=== PATIENT | male | born 1945 | race Caucasian/White ===

== ENCOUNTER 2017-10-18 10:57 | Emergency (ER) | payer MEDICARE ==
[~2017-10-18] VITALS: Ht 180.3 cm; Wt 103.0 kg
[~2017-10-18 10:57] MED LIST: ASPI81TA82 PO; CARV12.52 PO; HYDR-3533 PO; KRIL300C PO; PLAV75TA PO; REDCAP9 PO; ROSU10 PO
[2017-10-18 11:16] VITALS: BP 197/73; PULSE 46; RESP 22; TEMP 98.7; O2SAT 85
--- NOTE | 2017-10-18 11:31 | PD ---
HPI Chief Complaint: Respiratory Symptoms Time Seen by Provider: 11:17 Travel History International Travel<30 days: No Contact w/Intl Traveler<30days: No Traveled to known affect area: No History of Present Illness HPI 72-year-old male complains of shortness of breath. Patient states that the shortness of breath started last night. Patient was seen by personal physician about a week ago for productive cough. Patient was put on Levaquin for 7 days. Patient gives given patient a history of COPD. Patient was given prescription for albuterol nebulizer treatment without relief of the shortness of breath. Patient states that the shortness of his worse since last night. Patient states that he has mild productive cough. Patient denies any headache. Patient denies any chest pain. Patient denies any abdominal pain. Patient denies any nausea vomiting diarrhea. Patient has history of CHF, CAD status post CABG, hypertension, hyperlipidemia. Patient quit smoking many years ago. Patient is on Plavix. PFSH Past Medical History Hx Anticoagulant Therapy: Yes Cardiovascular Problems: Yes ([place] - STENTS, 2 VESSEL BYPASS) High Cholesterol: Yes COPD: Yes Coronary Artery Disease: Yes Diminished Hearing: No Respiratory: Yes Immunizations Current: Yes Past Surgical History Cholecystectomy: Yes Coronary Artery Bypass Graft: Yes (X2) Coronary Stent: Yes Other Surgery: Yes (STENT LT LEG) Social History Alcohol Use: Yes (OCC) Tobacco Use: No Substance Use: No Allergies-Medications (Allergen,Severity, Reaction): Coded Allergies: benazepril (Unverified Allergy, Severe, 03/17/17) captopril (Unverified Allergy, Severe, 03/17/17) enalaprilat (Unverified Allergy, Severe, 03/17/17) fire ant (Unverified Allergy, Severe, 03/17/17) fosinopril (Unverified Allergy, Severe, 03/17/17) lisinopril (Unverified Allergy, Severe, 03/17/17) quinapril (Unverified Allergy, Severe, 03/17/17) Reported Meds & Prescriptions Reported Meds & Active Scripts Active Reported Crestor (Rosuvastatin Calcium) 20 Mg Tab 20 Mg PO DAILY Proair Hfa 8.5 GM Inh (Albuterol Sulfate) 90 Mcg/Act Aer 2 Puff INH Q4-6H PRN 108 mcg/actuation Plavix (Clopidogrel Bisulfate) 75 Mg Tab 75 Mg PO DAILY Aspirin Children's (Aspirin) 81 Mg Chew 81 Mg CHEW DAILY Carvedilol 12.5 Mg Tab 12.5 Mg PO HS Carvedilol 25 Mg Tab 25 Mg PO DAILY Albuterol Neb (Albuterol Sulfate) 2.5 Mg/0.5 Ml Neb 2.5 Mg NEB Q6HR NEB Note: The Albuterol Sulfate Inhalation Solution is concentrated and must be diluted. Read complete instructions carefully before using. Keflex (Cephalexin) 500 Mg Cap 500 Mg PO Q12H Review of Systems General / Constitutional: No: Fever Eyes: No: Visual changes HENT: No: Headaches Cardiovascular: No: Chest Pain or Discomfort Respiratory: Positive: Shortness of Breath Gastrointestinal: No: Abdominal Pain Genitourinary: No: Dysuria Musculoskeletal: No: Pain Skin: No Rash Neurologic: No: Weakness Psychiatric: No: Depression Endocrine: No: Polydipsia Hematologic/Lymphatic: No: Easy Bruising Physical Exam Narrative GENERAL: Well-nourished, well-developed patient. SKIN: Focused skin assessment warm/dry. HEAD: Normocephalic. EYES: No scleral icterus. No injection or drainage. NECK: Supple, trachea midline. No JVD or lymphadenopathy. CARDIOVASCULAR: Regular rate and rhythm without murmurs, gallops, or rubs. RESPIRATORY: Breath sounds equal bilaterally. No accessory muscle use. GASTROINTESTINAL: Abdomen soft, non-tender, nondistended. MUSCULOSKELETAL: No cyanosis, or edema. BACK: Nontender without obvious deformity. No CVA tenderness. Neurologic exam normal. Data Data Last Documented VS Vital Signs Date Time Temp Pulse Resp B/P (MAP) Pulse Ox O2 Delivery O2 Flow Rate FiO2 10/18/17 11:16 85 Nasal Cannula 3.00 10/18/17 11:16 48 10/18/17 11:16 98.7 22 197/73 (114) Orders Orders Electrocardiogram (10/18/17 11:24) Complete Blood Count With Diff (10/18/17 11:24) Comprehensive Metabolic Panel (10/18/17 11:24) Creatine Kinase (Cpk) (10/18/17 11:24) Troponin I (10/18/17 11:24) B-Type Natriuretic Peptide (10/18/17 11:24) Prothrombin Time / Inr (Pt) (10/18/17 11:24) Act Partial Throm Time (Ptt) (10/18/17 11:24) Chest, Single Ap (10/18/17 11:24) Iv Access Insert/Monitor (10/18/17 11:24) Ecg Monitoring (10/18/17 11:24) Oximetry (10/18/17 11:24) Ct Pulmonary Angiogram (10/18/17 11:24) Iohexol 350 Inj (Omnipaque 350 Inj) (10/18/17 12:32) Labs Laboratory Tests Test 10/18/17 11:31 White Blood Count 4.3 TH/MM3 Red Blood Count 4.72 MIL/MM3 Hemoglobin 14.6 GM/DL Hematocrit 44.5 % Mean Corpuscular Volume 94.3 FL Mean Corpuscular Hemoglobin 31.0 PG Mean Corpuscular Hemoglobin Concent 33.0 % Red Cell Distribution Width 14.1 % Platelet Count 207 TH/MM3 Mean Platelet Volume 6.6 FL Neutrophils (%) (Auto) 67.8 % Lymphocytes (%) (Auto) 21.5 % Monocytes (%) (Auto) 7.7 % Eosinophils (%) (Auto) 2.5 % Basophils (%) (Auto) 0.5 % Neutrophils # (Auto) 3.0 TH/MM3 Lymphocytes # (Auto) 0.9 TH/MM3 Monocytes # (Auto) 0.3 TH/MM3 Eosinophils # (Auto) 0.1 TH/MM3 Basophils # (Auto) 0.0 TH/MM3 CBC Comment DIFF FINAL Differential Comment Prothrombin Time 11.1 SEC Prothromb Time International Ratio 1.1 RATIO Activated Partial Thromboplast Time 28.5 SEC Blood Urea Nitrogen 20 MG/DL Creatinine 0.82 MG/DL Random Glucose 150 MG/DL Total Protein 7.7 GM/DL Albumin 3.4 GM/DL Calcium Level 8.1 MG/DL Alkaline Phosphatase 107 U/L Aspartate Amino Transf (AST/SGOT) 20 U/L Alanine Aminotransferase (ALT/SGPT) 20 U/L Total Bilirubin 0.6 MG/DL Sodium Level 139 MEQ/L Potassium Level 4.1 MEQ/L Chloride Level 108 MEQ/L Carbon Dioxide Level 26.0 MEQ/L Anion Gap 5 MEQ/L Estimat Glomerular Filtration Rate 92 ML/MIN Total Creatine Kinase 68 U/L Troponin I LESS THAN 0.02 NG/ML B-Type Natriuretic Peptide 101 PG/ML MDM Medical Decision Making Medical Screen Exam Complete: Yes Emergency Medical Condition: Yes Interpretation(s) 12:[address] pulmonary angiogram shows CHF. CBC within normal limits. BUN 20. Cardiac enzymes are normal. BNP 101. Differential Diagnosis Differential diagnosis including acute exacerbation COPD, CHF, bronchitis, pneumonia, PE, pneumothorax. Narrative Course 72-year-old male with shortness of breath and mild productive cough. History of COPD and CHF. Lasix 40 mg IV given. Diagnosis Primary Impression: Acute exacerbation of CHF (congestive heart failure) Qualified Codes: I50.9 - Heart failure, unspecified Patient Instructions: General Instructions Additional Instructions: Take Lasix as directed. Potassium as directed. Follow-up with personal physician. Return if worse. Med/Other Pt SpecificInfo: Prescription(s) given Scripts Potassium Chloride ER (Potassium Chloride ER) 10 Meq Cap 10 MEQ PO DAILY for Electrolyte Replacement, #30 CAP 0 Refills Prov: Mikal Kaba MD 10/18/17 Furosemide (Lasix) 20 Mg Tab 20 MG PO DAILY, #30 TAB 0 Refills Prov: Mikal Kaba MD 10/18/17 Disposition: 01 DISCHARGE HOME Condition: Stable Mikal Kaba MD Oct 18, 2017 11:31
[2017-10-18 11:39] LABS: BASOPHIL % 0.5 % (0.0-2.0); EOSINOPHIL # 0.1 TH/MM3 (0-0.4); EOSINOPHIL % 2.5 % (0.0-4.0); HEMATOCRIT 44.5 % (39.0-51.0); HEMOGLOBIN 14.6 GM/DL (13.0-17.0); LYMPH % 21.5 % (9.0-44.0); LYMPHOCYTE # 0.9 TH/MM3 (1.0-4.8); MEAN CELL VOLUME 94.3 FL (80.0-100.0); MEAN PLATELET VOLUME 6.6 FL (7.0-11.0); MONO % 7.7 % (0.0-8.0); MONOCYTE # 0.3 TH/MM3 (0-0.9); NEUT % 67.8 % (16.0-70.0); PLATELET COUNT 207 TH/MM3 (150-450); RED BLOOD COUNT 4.72 MIL/MM3 (4.50-5.90); RED CELL DISTRIBUTION WIDTH 14.1 % (11.6-17.2); WHITE BLOOD COUNT 4.3 TH/MM3 (4.0-11.0)
[2017-10-18 11:48] LABS: CHLORIDE 108 MEQ/L (98-107); SODIUM (NA) 139 MEQ/L (136-145)
[2017-10-18 11:52] LABS: ALBUMIN 3.4 GM/DL (3.4-5.0); BLOOD UREA NITROGEN 20 MG/DL (7-18); CALCIUM 8.1 MG/DL (8.5-10.1); GLUCOSE,RANDOM 150 MG/DL (74-106)
[2017-10-18 11:54] LABS: INTERNATIONAL NORMALIZED RATIO 1.1 RATIO; PROTHROMBIN TIME - PATIENT 11.1 SEC (9.8-11.6)
[2017-10-18] MEDS ORDERED: ROSU20 PO (11:54)
[2017-10-18] MEDS ORDERED: ASPI81CH7 CHEW (11:54)
[2017-10-18] MEDS ORDERED: CARV25TA PO (11:54)
[2017-10-18] MEDS ORDERED: CEPH-460 PO (11:54)
[2017-10-18] MEDS ORDERED: ALBUAER3 INH (11:54)
[2017-10-18] MEDS ORDERED: CARV12.52 PO (11:54)
[2017-10-18] MEDS ORDERED: PLAV75TA29 PO (11:54)
[2017-10-18] MEDS ORDERED: ALBU.5I NEB (11:54)
[2017-10-18 11:55] LABS: ALT (GPT) 20 U/L (12-78); AST (GOT) 20 U/L (15-37); CREATININE 0.82 MG/DL (0.60-1.30); GLOMERULAR FILTRATION RATE 92 ML/MIN (>89)
[2017-10-18 11:57] LABS: TOTAL BILIRUBIN ADULT 0.6 MG/DL (0.2-1.0); TOTAL PROTEIN 7.7 GM/DL (6.4-8.2)
[2017-10-18 11:58] LABS: ALKALINE PHOSPHATASE 107 U/L (45-117)
--- NOTE | 2017-10-18 11:58 | RADRPT ---
EXAM DATE/TIME: 10/18/2017 11:30 [facility] COMPARISON: No previous studies available for comparison. INDICATIONS : Short of breath, cough, fever MEDICAL HISTORY : Myocardial infarction. Chronic obstructive pulmonary disease. SURGICAL HISTORY : CABG. ENCOUNTER: Initial ACUITY: 1 day PAIN SCORE: 0/10 LOCATION: Bilateral chest FINDINGS: Single view of the chest demonstrates mild cardiomegaly, post surgical changes related to prior CABG surgery. Diffuse cephalization of vasculature and bilateral patchy basilar air space opacities. Blunt ing of the left costophrenic angle concerning for pleural effusion. CONCLUSION: Differential diagnosis includes congestive heart failure with pulmonary edema versus diffuse multifocal pneumonia. Ivania Durant MD on October 18, 2017 at 11:55 Board Certified Radiologist. This report was verified electronically.
[2017-10-18 12:00] LABS: TROPONIN I LESS THAN 0.02 NG/ML (0.02-0.05)
[2017-10-18] MEDS ORDERED: IOHEXOL 350 MG/ML 10 ML VIAL (for RAD DIAG) IVCONTRAST ONE (12:32)
--- NOTE | 2017-10-18 12:38 | RADRPT ---
EXAM DATE/TIME: 10/18/2017 12:23 [facility] COMPARISON: CT LUMBAR SPINE W/O CONTRAST, July 13, 2015, 18:34. INDICATIONS : Short of breath last night. IV CONTRAST: 50 cc Omnipaque 350 (iohexol) IV RADIATION DOSE: 21.18 CTDIvol (mGy) MEDICAL HISTORY : Cardiovascular disease. Chronic obstructive pulmonary disease. SURGICAL HISTORY : CABG Coronary artery stent. ENCOUNTER: Initial ACUITY: 2 days PAIN SCALE: 0/10 LOCATION: chest TECHNIQUE: Volumetric scanning of the chest was performed using a pulmonary embolism protocol MIP images were re constructed. Using automated exposure control and adjustment of the mA and/or kV according to patien t size, radiation dose was kept as low as reasonably achievable to obtain optimal diagnostic quality images. DICOM format image data is available electronically for review and comparison. Follow-up recommendations for detected pulmonary nodules are based at a minimum on nodule size and pa tient risk factors according to Fleischner Society Guidelines. FINDINGS: The examination is of moderate diagnostic quality. There is no large or central pulmonary embolus rafiq ntified. The third order branches are not well-visualized. The heart is enlarged. There is advanced atherosclerotic plaquing of the algaaciq coronary arteries. Th e patient is post coronary bypass. There is no pericardial effusion. No significant hilar or mediasti nal adenopathy is present. Imaging through the pulmonary parenchyma demonstrates COPD. There is fairly diffuse interstitial prom inence. Differential considerations would include early congestive failure versus pulmonary fibrosis. The visualized bony structures are grossly intact. CONCLUSION: 1. Cardiomegaly. 2. No pulmonary embolus identified. 3. Diffuse interstitial prominence suggesting congestive failure versus chronic interstitial changes. There are COPD changes within the pulmonary parenchyma. Can Sanders MD on October 18, 2017 at 12:33 Board Certified Radiologist. This report was verified electronically.
[2017-10-18] MEDS ORDERED: FURO1TAB62 PO (12:57)
[2017-10-18] MEDS ORDERED: POTA10CA PO (12:57)
[2017-10-18] MEDS ORDERED: FUROSEMIDE 40 MG/4 ML VIAL IV PUSH ONE (13:30)
[2017-10-18 13:33] VITALS: BP 186/86
--- NOTE | 2017-10-19 11:28 | EKG ---
Date Performed: 10/18/2017 Time Performed: 11:52:52 PTAGE: 72 years EKG: SINUS BRADYCARDIA MODERATE INTRAVENTRICULAR CONDUCTION DELAY NONSPECIFIC T-WAVE ABNORMALITY BORDERLINE ECG NO PREVIOUS TRACING DOCTOR: Sofy Lepe Interpretating Date/Time 10/19/2017 11:25:22
== END 2017-10-18 13:42 | disposition home or self-care (01) ==
LOC: PHED 10:57
DX: I50.9 Heart failure, unspecified (principal); R00.1 Bradycardia, unspecified; J44.9 Chronic obstructive pulmonary disease, unspecified; E78.00 Pure hypercholesterolemia, unspecified; I25.10 Atherosclerotic heart disease of native coronary artery without angina pectoris; Z95.1 Presence of aortocoronary bypass graft; Z95.5 Presence of coronary angioplasty implant and graft; Z79.02 Long term (current) use of antithrombotics/antiplatelets; Z88.8 Allergy status to other drugs, medicaments and biological substances
CPT/HCPCS: 71045; 71275; 80053; 82550; 83880; 84484; 85025; 85610; 85730; 93005; 96374; 99285; J1940; Q9967

== ENCOUNTER 2018-07-10 02:53 | Inpatient (IN) ==
[2018-07-10 03:32] LABS: Baso % (Auto) 0.2 % (0.0-2.0); Chloride 103 meq/L (98-107); Eos # (Auto) 0.3 th/mm3 (0.0-0.4); Eos % (Auto) 2.8 % (0.0-4.0); Hematocrit 45.4 % (39.0-51.0); Hemoglobin 15.2 gm/dL (13.0-17.0); Lymph # (Auto) 1.1 th/mm3 (1.0-4.8); Mean Corpuscular HGB Conc 33.5 % (32.0-36.0); Mean Corpuscular Hemoglobin 32.8 pg (27.0-34.0); Mean Corpuscular Volume 97.9 fL (80.0-100.0); Mean Platelet Volume 7.8 fL (7.0-11.0); Mono # (Auto) 0.8 th/mm3 (0.0-0.9); Mono % (Auto) 8.1 % (0.0-8.0); Neut # (Auto) 8.2 th/mm3 (1.8-7.7); Neut % (Auto) 77.9 % (16.0-70.0); Platelet Count 179 th/mm3 (150-450); Potassium 4.6 meq/L (3.5-5.1); Red Blood Count 4.64 mil/mm3 (4.50-5.90); Red Cell Distribution Width 16.4 % (11.6-17.2); Sodium 137 meq/L (136-145); White Blood Count 10.4 th/mm3 (4.0-11.0)
[2018-07-10 03:35] LABS: Calcium 8.6 mg/dL (8.5-10.1)
[2018-07-10 03:36] LABS: Albumin 3.4 g/dL (3.4-5.0); Anion Gap 6 meq/L (5-15); Blood Urea Nitrogen 21 mg/dL (7-18); Carbon Dioxide 28.4 meq/L (21.0-32.0); Glucose,Random 181 mg/dL (74-106)
[2018-07-10 03:39] LABS: Alanine Aminotransferase 29 U/L (12-78); Aspartate Aminotransferase 24 U/L (15-37); Glomerular Filtration Rate 89 mL/min (>89)
[2018-07-10 03:40] LABS: Total Protein 7.4 g/dL (6.4-8.2)
[2018-07-10 03:42] LABS: Alkaline Phosphatase 133 U/L (45-117)
[2018-07-10 03:44] LABS: Troponin I 0.03 ng/mL (0.02-0.05)
[2018-07-10 03:50] LABS: Creatine Kinase 52 U/L (39-308)
[2018-07-10 04:01] LABS: Activated Partial Thrombo Time 26.9 sec (23.4-31.7); Prothrombin Time 10.4 sec (9.8-11.6)
--- NOTE | 2018-07-10 04:15 | ED ---
HPI General Chief complaint: Respiratory Symptoms Stated complaint: SOB Time Seen by Provider: 07/10/18 03:02 Source: patient and family Mode of arrival: ambulatory Limitations: no limitations History of Present Illness HPI narrative: Patient presents with history of frequent urination. For that reason patient stopped taking his Lasix for the last 3 days. Patient was fine when he went to bed and had no significant symptoms. However patient woke up in the middle of the night with significant shortness of breath and pain with deep inspiration. Rescue responded and treated him with #3 duo nebs and Solu- Medrol. Patient initially had a pulse ox of 80. However on arrival the patient was improving and after being here approximately 5 minutes his pulse ox is 90. Patient still had significant respiratory distress on presentation. And complained of pain with deep inspiration. However as his respiratory distress resolved over a period of 10-15 minutes the chest pain that he had with deep inspiration resolved. Patient had some diaphoresis prior to arrival. The chest pain was substernal and associated only with deep inspiration. Related Data Home Medications Medication Instructions Recorded Confirmed albuterol sulfate [ProAir HFA] 2 puff INHALATION Q4-6H PRN 07/10/18 07/10/18 aspirin 81 mg PO DAILY 07/10/18 07/10/18 bumetanide 1 mg PO DAILY 07/10/18 07/10/18 carvedilol [Coreg] 25 mg PO BID 07/10/18 07/10/18 clopidogrel [Plavix] 75 mg PO DAILY 07/10/18 07/10/18 rosuvastatin [Crestor] 10 mg PO DAILY 07/10/18 07/10/18 Allergies Allergy/AdvReac Type Severity Reaction Status Date / Time CATALINO Inhibitors Allergy Anaphylaxis Verified 07/10/18 02:58 Review of Systems ROS: all other systems reviewed are negative [facility] Medical History Medical History History of chronic obstructive pulmonary disease (Acute) History of hypercholesterolemia (Acute) History of myocardial infarction (Acute) Surgical History Surgical History History of coronary artery bypass graft (Acute) Social History Social History Substance History: No History of Abuse Smoking Status: Former smoker Tobacco Type: Cigarettes How Often Do You Have a Drink Containing Alcohol: Never Recent Travel in [facility] within the Last 8 Weeks: No Recent Out of Country Travel within the Last 8 Weeks: No Immunization History Tetanus Immunization: >5 Years Exam Narrative Exam Narrative: GENERAL: Acute respiratory distress with respiratory rate of 30/ min with a pulse ox of 85 on presentation SKIN: Focused skin assessment warm/dry. Diaphoretic HEAD: Atraumatic. Normocephalic. EYES: Pupils equal and round. No scleral icterus. No injection or drainage. ENT: No nasal bleeding or discharge. Mucous membranes pink and moist. NECK: Trachea midline. +JVD distention. CARDIOVASCULAR: Tachycardia with a normal rhythm. No murmur appreciated. RESPIRATORY: Patient had diffuse polyphonic wheezing with decreased breath sounds bilaterally. GASTROINTESTINAL: Abdomen soft, non-tender, nondistended. Hepatic and splenic margins not palpable. MUSCULOSKELETAL: No obvious deformities. No clubbing. No cyanosis. No edema. No calf tenderness or popliteal tenderness. No pretibial edema NEUROLOGICAL: Awake and alert. No obvious cranial nerve deficits. Motor grossly within normal limits. Normal speech. PSYCHIATRIC: Appropriate mood and affect; insight and judgment normal. Course Reevaluation(s) Reevaluation #1: Additionally prostate enlarged and bladder scan shows 274 mL of fluid. Capps catheter with leg bag placed. Time: 04:12 Initial Documented Vital Signs Temperature 97.8 F 07/10/18 03:00 Pulse Rate 87 07/10/18 03:00 Respiratory Rate 35 H 07/10/18 03:00 Blood Pressure 180/87 H 07/10/18 03:00 Pulse Oximetry 88 L 07/10/18 03:00 Last Documented Vital Signs Temperature 98.2 F 07/10/18 06:12 Pulse Rate 78 07/10/18 06:12 Respiratory Rate 22 07/10/18 06:12 Blood Pressure 142/75 H 07/10/18 06:12 Pulse Oximetry 93 L 07/10/18 06:12 Critical Care Time Total Critical Care Time: 80 Medical Decision Making MDM Narrative Medical Screen Exam Complete: Yes Emergency Medical Condition: Yes Lab Data Result diagrams: 07/10/18 03:11 07/10/18 03:11 Lab Results 07/10/18 07/10/18 07/10/18 Range/Units 03:11 03:11 03:11 CBC w Diff Auto diff final WBC 10.4 (4.0-11.0) th/mm3 RBC 4.64 (4.50-5.90) mil/mm3 Hgb 15.2 (13.0-17.0) gm/dL Hct 45.4 (39.0-51.0) % MCV 97.9 (80.0-100.0) fL MCH 32.8 (27.0-34.0) pg MCHC 33.5 (32.0-36.0) % RDW 16.4 (11.6-17.2) % Plt Count 179 (150-450) th/mm3 MPV 7.8 (7.0-11.0) fL Neut % (Auto) 77.9 H (16.0-70.0) % Lymph % (Auto) 11.0 (9.0-44.0) % [place] % (Auto) 8.1 H (0.0-8.0) % Eos % (Auto) 2.8 (0.0-4.0) % Baso % (Auto) 0.2 (0.0-2.0) % Neut # (Auto) 8.2 H (1.8-7.7) th/mm3 Lymph # (Auto) 1.1 (1.0-4.8) th/mm3 [place] # (Auto) 0.8 (0.0-0.9) th/mm3 Eos # (Auto) 0.3 (0.0-0.4) th/mm3 Baso # (Auto) 0.0 (0.0-0.2) th/mm3 WBC Differential . Differential Comment . PT 10.4 (9.8-11.6) sec INR 1.0 Ratio APTT 26.9 (23.4-31.7) sec Sodium (136-145) meq/L Potassium (3.5-5.1) meq/L Chloride (98-107) meq/L Carbon Dioxide (21.0-32.0) meq/L Anion Gap (5-15) meq/L BUN (7-18) mg/dL Creatinine (0.60-1.30) mg/dL Estimated GFR (>89) mL/min Random Glucose (74-106) mg/dL Calcium (8.5-10.1) mg/dL Magnesium (1.5-2.5) mg/dL Total Bilirubin (0.2-1.0) mg/dL AST (15-37) U/L ALT (12-78) U/L Alkaline Phosphatase (45-117) U/L Total Creatine Kinase (39-308) U/L Troponin I (0.02-0.05) ng/mL B-Natriuretic Peptide 108 H (0-100) pg/mL Total Protein (6.4-8.2) g/dL Albumin (3.4-5.0) g/dL 07/10/18 07/10/18 Range/Units 03:11 03:11 CBC w Diff WBC (4.0-11.0) th/mm3 RBC (4.50-5.90) mil/mm3 Hgb (13.0-17.0) gm/dL Hct (39.0-51.0) % MCV (80.0-100.0) fL MCH (27.0-34.0) pg MCHC (32.0-36.0) % RDW (11.6-17.2) % Plt Count (150-450) th/mm3 MPV (7.0-11.0) fL Neut % (Auto) (16.0-70.0) % Lymph % (Auto) (9.0-44.0) % [place] % (Auto) (0.0-8.0) % Eos % (Auto) (0.0-4.0) % Baso % (Auto) (0.0-2.0) % Neut # (Auto) (1.8-7.7) th/mm3 Lymph # (Auto) (1.0-4.8) th/mm3 [place] # (Auto) (0.0-0.9) th/mm3 Eos # (Auto) (0.0-0.4) th/mm3 Baso # (Auto) (0.0-0.2) th/mm3 WBC Differential Differential Comment PT (9.8-11.6) sec INR Ratio APTT (23.4-31.7) sec Sodium 137 (136-145) meq/L Potassium 4.6 (3.5-5.1) meq/L Chloride 103 (98-107) meq/L Carbon Dioxide 28.4 (21.0-32.0) meq/L Anion Gap 6 (5-15) meq/L BUN 21 H (7-18) mg/dL Creatinine 0.84 (0.60-1.30) mg/dL Estimated GFR 89 (>89) mL/min Random Glucose 181 H (74-106) mg/dL Calcium 8.6 (8.5-10.1) mg/dL Magnesium 1.8 (1.5-2.5) mg/dL Total Bilirubin 0.8 (0.2-1.0) mg/dL AST 24 (15-37) U/L ALT 29 (12-78) U/L Alkaline Phosphatase 133 H (45-117) U/L Total Creatine Kinase 52 (39-308) U/L Troponin I 0.03 (0.02-0.05) ng/mL B-Natriuretic Peptide (0-100) pg/mL Total Protein 7.4 (6.4-8.2) g/dL Albumin 3.4 (3.4-5.0) g/dL Imaging Data Radiologist's impression: Chest X-Ray 07/10/18 03:04 CONCLUSION: Left lower lobe airspace disease. Diffuse interstitial prominence. Chest CTA 07/10/18 04:15 CONCLUSION: 1. Severe emphysema. 2. Left lower lobe and lingular pneumonia. 3. 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 4.2 cm ECG Data EKG Prior to Arrival: Yes Interpretation: Regular rhythm with no ectopy. Left axis shift with no ischemic changes. RI QRS and QT are within normal limits Discharge Plan Discharge Disposition Patient Disposition: ED Admit(ED Internal Use Only) Discharge Details Discharge Comment: Acute respiratory distress; COPD; outlet obstruction of bladder with retention and boggy enlarged prostate. Physicians Team ED Provider: Lorenzo Reeves Primary Care Provider: UNKNOWN, Rxs /Orders / Referrals /Forms Prescriptions: No Action carvedilol [Coreg] 25 mg Tablet 25 mg PO BID RF: 0 rosuvastatin [Crestor] 10 mg Tablet 10 mg PO DAILY RF: 0 clopidogrel [Plavix] 75 mg Tablet 75 mg PO DAILY RF: 0 aspirin 81 mg Tablet,Chewable 81 mg PO DAILY RF: 0 albuterol sulfate [ProAir HFA] 90 mcg/actuation Hfa Aerosol Inhaler 2 puff INHALATION Q4-6H PRN (Reason: Shortness Of Breath) RF: 0 bumetanide 1 mg Tablet 1 mg PO DAILY RF: 0 Discharge Interventions Interventions: Vital Signs Last Done: 07/10/18 03:03 Status ED Status: With Doctor
--- NOTE | 2018-07-10 04:29 | XR ---
EXAM DATE: 07/10/2018 4:13 AM EST AGE/SEX: 72 years / Male INDICATIONS: . Shortness of breath. CLINICAL DATA: This is the patient's initial encounter. Patient reports that signs and symptoms have been present for 1 day and indicates a pain score of 0/10. MEDICAL/SURGICAL HISTORY: Hypertension. Chronic obstructive pulmonary disease. Myocardial inf arction. Congestive heart failure. Coronary artery disease. CABG. Coronary artery stent. Cholecys tectomy. COMPARISON: [facility], XR CHEST PA AND LAT, 04/29/2018. . FINDINGS: There is mild interstitial prominence and patchy left lower lobe airspace disease. Mild degenerative changes of the spine. CONCLUSION: Left lower lobe airspace disease. Diffuse interstitial prominence. Electronically signed by: Tomy Umanzor MD 07/10/2018 4:28 AM EST
--- NOTE | 2018-07-10 05:19 | CT ---
EXAM DATE: 07/10/2018 4:58 AM EST AGE/SEX: 72 years / Male INDICATIONS: Shortness of breath. CLINICAL DATA: This is the patient's initial encounter. Patient reports that signs and symptoms have been present for 1 day and indicates a pain score of 5/10. MEDICAL/SURGICAL HISTORY: Chronic obstructive pulmonary disease. Hypercholesterolemia. Myocardial i nfarction. . Coronary artery bypass graft. RADIATION DOSE: 21.85 CTDI (mGy) COMPARISON: [facility], CHEST 2V PA&LAT, 07/10/2018. . TECHNIQUE: Volumetric scanning was performed using a multi-row detector CT scanner during bolus infu shaheen of 70 ml Omnipaque 350 (iohexol) nonionic water-soluble contrast as a single exam dose. The selma a was post processed with a variety of visualization algorithms including full volume maximum intensi ty projection and sliding thin slab reformation. Using automated exposure control and adjustment of the mA and/or kV according to patient size, radiation dose was kept as low as reasonably achievable t o obtain optimal diagnostic quality images. DICOM format image data is available electronically for review and comparison. FINDINGS: There are severe emphysematous changes identified. There is interstitial prominence with consolidatio n in the left lower lobe corresponding to findings on recent chest x-ray. There are no pleural effusi ons. There is patchy airspace disease in the lingula. Sternotomy wires and mediastinal clips from CAB G are noted. Atherosclerotic calcifications of the aorta are present. Ascending aorta is prominent in caliber up to 4.2 cm. There is no evidence for pulmonary embolism. There are degenerative changes of the spine seen. Bilateral gynecomastia. CONCLUSION: 1. Severe emphysema. 2. Left lower lobe and lingular pneumonia. 3. 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 4.2 cm Electronically signed by: Tomy Umanzor MD 07/10/2018 5:18 AM EST
[2018-07-10] MEDS ORDERED: Azithromycin Inj 500 MG in Sodium Chlor 0.9% Inj 250 ML IV.SIG ONE (08:04)
[2018-07-10] MEDS ORDERED: Bisacodyl 10 MG Supp RECTAL PRN ×2 (09:02→15:13)
[2018-07-10] MEDS ORDERED: Acetaminophen 325 MG Tablet PO PRN (09:02)
[2018-07-10] MEDS: predniSONE 10 MG Tablet PO SCH ×2 (09:41→20:26)
[2018-07-10] MEDS: Carvedilol 12.5 MG Tablet PO SCH ×2 (09:42→20:26)
[2018-07-10] MEDS ORDERED: Enoxaparin Inj 40 MG/0.4 ML Syringe SQ SCH (10:00)
[2018-07-10] MEDS ORDERED: Heparin 10,000 UNITS/10 ML Vial (for IV use) IV.PUSH STA (10:23)
[2018-07-10 10:55] LABS: Activated Partial Thrombo Time 28.7 sec (23.4-31.7); Prothrombin Time 10.6 sec (9.8-11.6)
[2018-07-10] MEDS: Heparin Drip 25,000 UNIT/250 ML BAG IV.CONT PRN (11:05)
--- NOTE | 2018-07-10 11:47 | P.HPIM ---
History of Present Illness Primary Care Physician: UNKNOWN Chief Complaint: Shortness of breath History of Present Illness: Denies premature cardiac disease stroke or cancer 72-year-old gentleman with CAD and severe COPD states he awoke after being asleep for a couple hours with sudden acute shortness of breath and hypoxia. Patient states he did not have chest pain palpitations but severe shortness of breath and he could not get his oxygen levels up to normal. He noted his oxygen saturations in the 60s. He could not catch a deep breath, and he called 911. He was treated with IV Solu-Medrol and pulmonary treatments and brought to the emergency room where he was tachypneic and hypoxic. Chest x-ray revealed left lower lobe infiltrate while CT angiogram of chest was negative for PE and consistent with left lower lobe and lingular pneumonia. Patient denies any recent illness or signs of pneumonia, he had recently seen his cyber operator Dr. Webb, and has been feeling well. Patient was noted to have difficulty voiding in the emergency room and bladder scan revealed greater than 270 cc Capps catheter was placed, patient denies history of bladder outlet obstruction but was told has an enlarged prostate. PMhx: Coronary artery disease, GA, oxygen dependent COPD, hypertension, dyslipidemia, (coat repair inspector Dr. Anguiano), BPH PSXhx: Cardiac stents, 2V CABG, cholecystectomy, 3 knee surgeries SOChx: Denies tobacco quit 2008, denies alcohol, ambulates independently, 2.5 L nasal cannula chronic at home FAMhx: Coronary artery disease Inpatient Certification Inpatient Certification: I certify that the inpatient services were ordered in accordance with Medicare regulations governing the order. This includes certification that hospital inpatient services are reasonable and necessary and in the case of services not specified as inpatient-only under 42 CFR 419.22(n), that they are appropriately provided as inpatient services in accordance to with the 2-midnight benchmark under 43 CFR 412.3(e) Estimated Total Length of Stay (Days): 3 Plans for Post Hospital Care: Other acute care hospital Review of Systems Review of Systems: all other systems reviewed are negative [facility] Medical History Medical History History of chronic obstructive pulmonary disease (Acute) History of hypercholesterolemia (Acute) History of myocardial infarction (Acute) Surgical History Surgical History History of coronary artery bypass graft (Acute) Social History Social History Substance History: No History of Abuse Second Hand Smoke Exposure: No Smoking Status: Former smoker Tobacco Type: Cigarettes How Often Do You Have a Drink Containing Alcohol: Monthly or less Recent Travel in [place] within the Last 8 Weeks: No Recent Out of Country Travel within the Last 8 Weeks: No Immunization History Tetanus Immunization: >5 Years Hx Influenza Vaccine This Season: Yes Medications and Allergies Allergies Allergy/AdvReac Type Severity Reaction Status Date / Time CATALINO Inhibitors Allergy Anaphylaxis Verified 07/10/18 02:58 Home Medications Medication Instructions Recorded Confirmed Type albuterol sulfate [ProAir HFA] 2 puff INHALATION Q4-6H PRN 07/10/18 07/10/18 History aspirin 81 mg PO DAILY 07/10/18 07/10/18 History bumetanide 1 mg PO DAILY 07/10/18 07/10/18 History carvedilol [Coreg] 25 mg PO BID 07/10/18 07/10/18 History clopidogrel [Plavix] 75 mg PO DAILY 07/10/18 07/10/18 History rosuvastatin [Crestor] 10 mg PO DAILY 07/10/18 07/10/18 History Active Medications: Active Medications Acetaminophen (Tylenol) 650 mg PO Q4H PRN PRN Reason: Temp > 100.4 Al Hydroxide/Mg Hydroxide (Milk Of Navya Liperla) 30 ml PO Q12H PRN PRN Reason: Mild Constipation Albuterol (Ventolin Hfa Inh) 2 puff INH Q4H PRN PRN Reason: Shortness Of Breath Albuterol (Duoneb Neb (Ayesha)) 1 ampul NEB Q4HR NEB AYESHA Aspirin (Aspirin Chew) 81 mg PO DAILY [facility] Last Admin: 07/10/18 09:43 Dose: 81 mg Atorvastatin Calcium (Lipitor) 20 mg PO DAILY [facility] Last Admin: 07/10/18 09:42 Dose: 20 mg Bisacodyl (Dulcolax Supp) 10 mg RECTAL DAILY PRN PRN Reason: SEVERE CONSITIPATION Carvedilol (Coreg) 25 mg PO BID [facility] Last Admin: 07/10/18 09:42 Dose: 25 mg Clopidogrel Bisulfate (Plavix) 75 mg PO DAILY [facility] Last Admin: 07/10/18 09:43 Dose: 75 mg Famotidine (Pepcid) 20 mg PO HS [facility] Ceftriaxone Sodium 1,000 mg/ (Sodium Chloride) 100 mls @ 200 mls/hr IV.SIG Q24H [facility] Last Infusion: 07/10/18 10:21 Dose: Infused Azithromycin 500 mg/ Sodium (Chloride) 250 mls @ 250 mls/hr IV.SIG Q24H [facility] Heparin Sodium/Dextrose (Heparin/D5w 25,000 U/250 Ml) 25,000 unit in 250 mls @ 0 mls/hr IV.CONT TITRATE PRN; Protocol PRN Reason: Per Protocol Last Admin: 07/10/18 11:05 Dose: 1,200 units/hr, 12 mls/hr Lactobacillus Acidophilus (Lactinex Pkt) 1 gm PO TID [facility] Lactulose (Lactulose Liq) 30 ml PO DAILY PRN PRN Reason: SEVERE CONSITIPATION Ondansetron HCl (Zofran Inj) 4 mg IV.PUSH Q6H PRN PRN Reason: NAUSEA OR VOMITING Prednisone (Deltasone) 30 mg PO BID [facility] Last Admin: 07/10/18 09:41 Dose: 30 mg Senna/Docusate Sodium (Lupe-Colace) 1 tab PO BID [facility] Sennosides (Senokot) 17.2 mg PO Q12H PRN PRN Reason: Moderate Constipation Sodium Chloride (Ns Flush) 2 ml IV.FLUSH UNSCH PRN PRN Reason: FLUSH AFTER USING IV ACCESS Sodium Chloride (Ns Flush) 2 ml IV.FLUSH PRN PRN PRN Reason: FLUSH AFTER USING IV ACCESS Sodium Chloride (Ns Flush) 2 ml IV.FLUSH BID [facility] Physical Exam Vital signs: Last Vital Signs Temp 98.4 F 07/10/18 08:30 Pulse 68 07/10/18 09:02 Resp 23 07/10/18 09:02 BP 149/75 H 07/10/18 09:02 Pulse Ox 93 L 07/10/18 08:30 Intake & Output 07/08/18 07/09/18 07/10/18 07/11/18 06:59 06:59 06:59 06:59 Intake Total 350 / 350 Output Total 1850 / 1850 Balance -1850 / -1850 350 / 350 Weight 102.058 kg Narrative: GEN well-developed well-nourished pleasant 72-year-old white gentleman awake alert oriented to person time and place, pleasant in no acute distress, on Ventimask but speaking in full sentences HEENT normocephalic atraumatic, Pupils equal reactive, sclerae anicteric, extraocular motion intact, mucosa is moist. posterior pharynx clear without exudate no gum lip dental lesions noted NECK supple no JVD trachea midline thyroid smooth not enlarged ANT CHEST WALL without mass or tenderness to palpation HEART S1-S2 regular without murmur gallops or clicks LUNGS clear to auscultation without wheeze, no rales or rhonchi , Diminished symmetric expansion, no dullness to percussion, BACK exam is no CVA tenderness or mass, increased kyphosis ABDOMEN soft nondistended positive bowel sounds no guarding rebound rigidity, no mass LYMPH NODES no cervical, axillary or inguinal adenopathy noted EXTREMITIES no clubbing cyanosis or significant edema, peripheral pulses palpable +2 NEUROLOGIC cranial nerves II through XII appear grossly intact, strength is 5 out of 5 symmetrical no clonus or rigidity SKIN warm and dry with good turgor, no other rash or sores noted hyperemic discoloration lower extremity Results Labs CBC & Chem 7: 07/10/18 03:11 07/10/18 03:11 Imaging Impressions Chest X-Ray 07/10/18 03:04 CONCLUSION: Left lower lobe airspace disease. Diffuse interstitial prominence. Chest CTA 07/10/18 04:15 CONCLUSION: 1. Severe emphysema. 2. Left lower lobe and lingular pneumonia. 3. 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 4.2 cm Caprini VTE Risk Assessment Caprini VTE Risk Assessment: Moderate/High Risk (score >= 2) Caprini Risk Assessment Model: Point Value = 1 Point Value = 2 Point Value = 3 Point Value = 5 Age 41-60 Minor surgery BMI > 25 kg/m2 Swollen legs Varicose veins or History of unexplained or recurrent spontaneous Oral contraceptives or hormone replacement Sepsis (< 1 month) Serious lung disease, including pneumonia (< 1 month) Abnormal pulmonary function Acute myocardial infarction Congestive heart failure (< 1 month) History of inflammatory bowel disease Medical patient at bed rest Age 61-74 Arthroscopic surgery Major open surgery (> 45 min) Laparoscopic surgery (> 45 min) Malignancy Confined to bed (> 72 hours) Immobilizing plaster cast Central venous access Age >= 75 History of VTE Family history of VTE Factor V Leiden Prothrombin 03120G Lupus anticoagulant Anticardiolipin antibodies Elevated serum homocysteine Heparin-induced thrombocytopenia Other congenital or acquired thrombophilia Stroke (< 1 month) Elective arthroplasty Hip, pelvis, or leg fracture Acute spinal cord injury (< 1 month) Prophylaxis Regimen: Total Risk Factor Score Risk Level Prophylaxis Regimen 0-1 Low Early ambulation 2 Moderate Order ONE of the following: *Sequential Compression Device (SCD) *Heparin 5000 units SQ BID 3-4 Higher Order ONE of the following medications: *Heparin 5000 units SQ TID *Enoxaparin/Lovenox 40 mg SQ daily (WT < 150 kg, CrCl > 30 mL/min) *Enoxaparin/Lovenox 30 mg SQ daily (WT < 150 kg, CrCl > 10-29 mL/min) *Enoxaparin/Lovenox 30 mg SQ BID (WT < 150 kg, CrCl > 30 mL/min) AND/OR *Sequential Compression Device (SCD) 5 or more Highest Order ONE of the following medications: *Heparin 5000 units SQ TID (Preferred with Epidurals) *Enoxaparin/Lovenox 40 mg SQ daily (WT < 150 kg, CrCl > 30 mL/min) *Enoxaparin/Lovenox 30 mg SQ daily (WT < 150 kg, CrCl > 10-29 mL/min) *Enoxaparin/Lovenox 30 mg SQ BID (WT < 150 kg, CrCl > 30 mL/min) AND *Sequential Compression Device (SCD) Assessment and Plan Plan ACUTE ON CHRONIC HYPOXIC RESPIRATORY FAILURE -due to exacerbation of COPD/non- STEMI, patient is admitted, continue telemetry, pulmonary treatments, oxygen NSTEMI-currently no chest pain, serial troponins, aspirin beta-federica and nitrates, cardiology consult, heparin drip per protocol EXACERBATION COPDcontinue steroids, pulmonary treatments as tolerated HTNaccelerated in presentation improved, continue to monitor and home Coreg CADwith history of CABG and stents on Plavix aspirin, continue, get echocardiogram and follow-up with cardiology regarding non-STEMI DYSLIPIDEMIAcontinue statin as tolerated PNEUMONIA /CAP LINGULAR/LLLsputum cultures, blood cultures, empiric Rocephin azithromycin, HYPERGLYCEMIA -no history of diabetes, likely stress-induced and secondary to steroids, will monitor fasting glucose H&P: Quality VTE Deep Vein Thrombosis/Pulmonary Embolism Present on Admission: No
[2018-07-10] MEDS ORDERED: Dextrose 50% in Water 50 ML Vial IV.PUSH PRN (15:13)
[2018-07-10] MEDS ORDERED: Sod Phosphate/Sod Biphosphate (Adult) Enema 133 ML Bottle RECTAL PRN (15:13)
[2018-07-10] MEDS: Famotidine 20 MG Tablet PO SCH (20:26)
[2018-07-10] MEDS: Docusate Sodium 100 MG Capsule PO SCH (20:27)
[2018-07-10] MEDS: Senna/Docusate Sodium 8.6/50 MG Tablet PO SCH (20:28)
--- NOTE | 2018-07-10 20:52 | ECG ---
Date Performed: 07/10/2018 Time Performed: 02:53:32 PTAGE: 72 years EKG: Sinus rhythm ABNORMAL R WAVE PROGRESSION, LIKELY DUE TO LEAD PLACEMENT, BUT CANNOT EXCLUDE INTERVAL INFARCT Bishop red to previous tracing, LATERAL T WAVE ABNORMALITY IS NEW Clinical correlation is recommended NORMAL ECG PREVIOUS TRACING : 10/18/2017 11.52 DOCTOR: Jevon Ortiz Interpretating Date/Time 07/10/2018 20:50:43
--- NOTE | 2018-07-10 20:52 | ECG ---
Date Performed: 07/10/2018 Time Performed: 11:05:06 PTAGE: 72 years EKG: Sinus rhythm NONSPECIFIC T-WAVE ABNORMALITY Since the previous tracing, no significant change noted ABNORMAL ECG PREVIOUS TRACING : 07/10/2018 02.53 DOCTOR: Jevon Ortiz Interpretating Date/Time 07/10/2018 20:51:24
[2018-07-10] MEDS ORDERED: Metoprolol Tartrate 25 MG Tablet PO SCH (21:00)
[2018-07-11 06:12] LABS: Baso % (Auto) 0.1 % (0.0-2.0); Hematocrit 40.5 % (39.0-51.0); Lymph # (Auto) 0.6 th/mm3 (1.0-4.8); Lymph % (Auto) 4.1 % (9.0-44.0); Mean Corpuscular HGB Conc 34.6 % (32.0-36.0); Mean Corpuscular Hemoglobin 33.5 pg (27.0-34.0); Mean Corpuscular Volume 96.8 fL (80.0-100.0); Mean Platelet Volume 8.3 fL (7.0-11.0); Mono # (Auto) 0.9 th/mm3 (0.0-0.9); Mono % (Auto) 6.5 % (0.0-8.0); Neut # (Auto) 12.1 th/mm3 (1.8-7.7); Neut % (Auto) 89.3 % (16.0-70.0); Platelet Count 162 th/mm3 (150-450); Red Blood Count 4.19 mil/mm3 (4.50-5.90); Red Cell Distribution Width 16.8 % (11.6-17.2); White Blood Count 13.5 th/mm3 (4.0-11.0)
[2018-07-11 06:28] LABS: Anion Gap 10 meq/L (5-15); Blood Urea Nitrogen 26 mg/dL (7-18); Calcium 8.4 mg/dL (8.5-10.1); Carbon Dioxide 26.1 meq/L (21.0-32.0); Chloride 102 meq/L (98-107); Cholesterol 112 mg/dL (120-200); Glomerular Filtration Rate Greater Than 89 mL/min (>89); Glucose,Random 264 mg/dL (74-106); Potassium 4.3 meq/L (3.5-5.1); Sodium 138 meq/L (136-145); Triglycerides 59 mg/dL (42-150)
[2018-07-11 06:31] LABS: Chol/HDL Ratio 1.94 Ratio; HDL Cholesterol 57.6 mg/dL (40.0-60.0); LDL Cholesterol,Calculated 43 mg/dL (0-99)
[2018-07-11] MEDS: predniSONE 10 MG Tablet PO SCH ×2 (08:49→22:29)
[2018-07-11] MEDS: Multivitamin/Minerals Therapeutic Tablet PO SCH (08:49)
[2018-07-11] MEDS: Carvedilol 12.5 MG Tablet PO SCH ×2 (08:51→22:29)
[2018-07-11] MEDS: Docusate Sodium 100 MG Capsule PO SCH ×2 (08:58→22:36)
[2018-07-11] MEDS: Senna/Docusate Sodium 8.6/50 MG Tablet PO SCH (08:58)
[2018-07-11] MEDS: Azithromycin Inj 500 MG in Sodium Chlor 0.9% Inj 250 ML IV.SIG SCH (08:59)
[2018-07-11] MEDS ORDERED: Polyethylene Glycol 3350 17 GM Packet PO SCH (09:00)
[2018-07-11] MEDS: Heparin Drip 25,000 UNIT/250 ML BAG IV.CONT PRN (09:43)
--- NOTE | 2018-07-11 15:27 | P.PNIM ---
Subjective Interval history: Plan for heart cath tomorrow. Respiratory status is improved. No new complaints from the patient today. Physical Exam Vital signs: Last Vital Signs Temp 97.8 F 07/11/18 12:00 Pulse 66 07/11/18 14:22 Resp 18 07/11/18 14:22 BP 145/62 H 07/11/18 12:00 Pulse Ox 92 L 07/11/18 12:00 Intake & Output 07/09/18 07/10/18 07/11/18 07/12/18 06:59 06:59 06:59 06:59 Intake Total 1070 / 1070 600 / 600 Output Total 1850 / 1850 2600 / 2600 Balance -1850 / -1850 -1530 / -1530 600 / 600 Weight 102.058 kg 102.1 kg Narrative: GENERAL: NAD, A&Ox3 HEAD: Normocephalic. NECK: Supple, trachea midline. No lymphadenopathy. EYES: No scleral icterus. No injection or drainage. CARDIOVASCULAR: Regular rate and rhythm without murmurs, gallops, or rubs. RESPIRATORY: Breath sounds equal bilaterally. No accessory muscle use. GASTROINTESTINAL: Abdomen soft, non-tender, nondistended. MUSCULOSKELETAL: No cyanosis, or edema. SKIN: Warm and dry. NEURO: No focal neurological deficits. Urinary Catheter Management Indwelling Urethral Catheter: Cath placed during this visit: yes Urethral indwelling: No Insertion date: 07/10/18 Insertion time: 04:19 Results Labs CBC & Chem 7: 07/11/18 05:53 07/11/18 05:53 Labs: Microbiology 07/10/18 08:10 Blood - Peripheral Aerobic Blood Culture - Preliminary No growth in 1 day 07/10/18 08:10 Blood - Peripheral Anaerobic Blood Culture - Preliminary No growth in 1 day 07/10/18 08:15 Blood - Peripheral Aerobic Blood Culture - Preliminary No growth in 1 day 07/10/18 08:15 Blood - Peripheral Anaerobic Blood Culture - Preliminary No growth in 1 day Assessment and Plan Plan 72-year-old male admitted secondary to respiratory distress with NSTEMI NSTEMI Coronary artery disease Chest pain is resolved Cardiology following Continue aspirin Continue beta-blockers Continue nitrites Heparin drip Follow on telemetry Heart cath planned for tomorrow Previously on Plavix at baseline COPD exacerbation Acute on chronic respiratory failure Community-acquired pneumonia Left lower lobe pneumonia Improved, no persistence of COPD exacerbation Continue oxygen supplementation as needed Discontinue steroids Pulmonary treatments as needed Continue Rocephin Continue azithromycin Hypertension Continue baseline treatment Follow blood pressures Adjust treatments as needed Continue Coreg Hyperlipidemia Continue present treatment Follow as an outpatient Hyperlipidemia May be related to steroids Follow blood sugars Insulin sliding scale Diabetic diet DVT prophylaxis Heparin drip Progress Note: Quality VTE Deep Vein Thrombosis/Pulmonary Embolism Present on Admission: No
--- NOTE | 2018-07-11 18:03 | MB ---
cc: Wong Boyle MD DATE: 07/11/2018 FORESTRY FIRE AIDE: John Anguiano MD REASON FOR CONSULTATION: I am asked to evaluate patient with abnormal troponin levels. HISTORY OF PRESENT ILLNESS: Venu Willson is a pleasant 72-year-old gentleman with past medical history as noted and listed below. His past cardiac history is significant for coronary artery disease, status post CABG x 2. He also has severe COPD. The patient presented to [facility] with complaints of sudden onset shortness of breath associated with chills and shaking. In the emergency room, he was noted to have decreased O2 saturations. Troponins returned positive for acute coronary syndrome. He was subsequently transferred to [facility] for further evaluation and treatment. PERTINENT LABORATORY DATA: Troponins positive for acute coronary syndrome 5.68, 2.92. BNP 108. ECG shows sinus rhythm with a heart rate 83 BPM, normal axis and intervals, diffuse nonspecific ST-T abnormalities. Chest CTA shows severe emphysema, mild ascending aortic dilatation, 4.2 cm, interstitial prominence with consolidation left lower lobe. No evidence of pulmonary embolism. MEDICATIONS PRIOR TO ADMISSION: 1. Albuterol. 2. Aspirin. 3. Bumex. 4. Carvedilol. 5. Plavix. 6. Crestor. ALLERGIES: CATALINO INHIBITORS. PAST MEDICAL HISTORY: As above. 1. Severe COPD. 2. Hypercholesterolemia. 3. Coronary artery disease, status post infarction, PAST SURGICAL HISTORY: 1. Status post CABG x 2. 2. Cholecystectomy. 3. Knee surgery x 3. SOCIAL HISTORY: No illicit drug use. He is a former smoker. He lives with his . He drinks alcohol socially. REVIEW OF SYSTEMS: As above, 12-point review of systems reviewed and noted. No recent fevers, gastrointestinal, genitourinary or neurologic symptoms. PHYSICAL EXAMINATION: VITAL SIGNS: Pulse 52, afebrile. Vital signs are stable. HEENT: Anicteric. PERRLA. No xanthelasmas. Flat JVD. LUNGS: Decreased breath sounds at the bases, otherwise clear. HEART: Regular rate and rhythm, 2/6 systolic murmur at left lower sternal border. ABDOMEN: Soft and nontender. EXTREMITIES: Show no peripheral edema. LABORATORY DATA: As above. WBC 10.4, hemoglobin 15.2, hematocrit 45.4, platelet count 179,000. INR 1.0. IMPRESSION: 1. Troponins positive for acute coronary syndrome. 2. History of coronary artery disease, status post CABG x 2. 3. Severe chronic obstructive pulmonary disease with exacerbation. 4. Probable left lower lobe pneumonia. 5. Hypercholesterolemia. PLAN: 1. Continue IV heparin. 2. Further therapy per Dr. Anguiano, possible cath versus stress SPECT. 3. Nitroglycerin paste 1 inch every 6 hours. 4. Outpatient cardiovascular medications have been continued. 7. Dr. Anguiano will return in a.m. MD JOSUE Abdullahi/terry , 03:33 PM , 03:45 PM
--- NOTE | 2018-07-11 18:37 | MB ---
cc: Jozef Webb MD DATE: 07/11/2018 REQUESTING PHYSICIAN: Dr. Dia REASON FOR CONSULTATION: COPD and lung infiltrate. HISTORY OF PRESENT ILLNESS: Mr. Willson is a pleasant 72-year-old male with history of COPD, oxygen dependent, uses oxygen 4 liters nasal cannula. The patient was seen in this office about 4 days ago when he was doing well. Next day, he went to sleep. He woke up to go to the bathroom, but when he came from the bathroom, he started having significant shortness of breath and he was having chills. Did not have any chest pain. Did not have any fever. No cough or sputum production. He noticed that his oxygen saturation went down to 60%. He called 911 and was brought to the [facility]. He had workup done over there. He had a CT scan of the chest done that does not show any pulmonary embolism. It shows he has left lower lobe and lingular infiltrate. CBC shows WBC count 13.5, hemoglobin 14.0, hematocrit 40.5, MCV 96, platelet count 162. INR 1.0. Sodium 138, potassium 4.3, chloride 102, CO2 26, BUN 26, creatinine 0.83. He denies any fever or chills. His shortness of breath has improved. The patient is now transferred to [facility]. PAST MEDICAL HISTORY: Significant for: 1. History of COPD, oxygen dependent. 2. Coronary artery disease. 3. Hypertension. 4. Dyslipidemia. 5. BPH. PAST SURGICAL HISTORY: Status post: 1. CABG. 2 . Cholecystectomy. 3. Knee surgery. MEDICATIONS: He is currently takin. Ventolin inhaler. 2. Albuterol and Atrovent nebulizer treatment. 3. Aspirin 81 mg daily. 4. Lipitor 40 mg a day. 5. Zithromax 500 mg a day. 6. Bumex 1 mg a day. 7. Coreg 25 mg twice a day. 8. Rocephin 1 g a day. 9. Plavix 75 mg a day. 10. Famotidine 20 mg at nighttime. 11. He is on heparin drip. 12. Reglan 10 mg every 6 hours. 13. Prednisone 30 mg twice a day ALLERGIES: CATALINO INHIBITORS. FAMILY HISTORY: Noncontributory. SOCIAL HISTORY: He has a history of smoking in the past. No alcohol abuse. REVIEW OF SYSTEMS: He walks only short distances and requires oxygen 4 liters nasal cannula, still desaturates. No seizure. No DVT, pulmonary embolus. PHYSICAL EXAMINATION: GENERAL: Elderly male, mildly short of breath, not in any acute distress. VITAL SIGNS: Blood pressure 145/62, heart rate 60, respirations 20, temperature 97.8. HEENT: Pupils are equal, round and reactive to light. Oral mucosa and nasal mucosa normal. NECK: Supple. CHEST: He has few rhonchi. HEART: S1, S2 normal. ABDOMEN: Benign. EXTREMITIES: No edema. IMPRESSION: 1. Chronic obstructive pulmonary disease exacerbation. 2. Hypoxia. No pulmonary embolism. 3. A lingular/left lower lobe infiltrate. 4. Increased troponin, possible non-ST myocardial infarction. 5. History of coronary artery disease, status post coronary artery bypass grafting. 6. Hypertension. PLAN: I discussed with the patient. Will give him prednisone 20 mg aerosol treatment and continue antibiotic. Cardiology is consulted and cardiac workup is underway. Supplement his oxygen. Further treatment will depend on the course in the hospital. Thank you, Dr. Dia, for this consult. MD SUSI Montenegro/terry/bhupendra , 03:18 PM , 03:28 PM BARB
[2018-07-11] MEDS: Famotidine 20 MG Tablet PO SCH (22:30)
[2018-07-12 06:40] LABS: Baso % (Auto) 0.2 % (0.0-2.0); Hematocrit 40.4 % (39.0-51.0); Hemoglobin 13.6 gm/dL (13.0-17.0); Lymph # (Auto) 0.5 th/mm3 (1.0-4.8); Lymph % (Auto) 4.3 % (9.0-44.0); Mean Corpuscular HGB Conc 33.6 % (32.0-36.0); Mean Corpuscular Hemoglobin 33.3 pg (27.0-34.0); Mean Corpuscular Volume 99.1 fL (80.0-100.0); Mean Platelet Volume 8.6 fL (7.0-11.0); Mono # (Auto) 0.6 th/mm3 (0.0-0.9); Mono % (Auto) 5.1 % (0.0-8.0); Neut # (Auto) 10.3 th/mm3 (1.8-7.7); Neut % (Auto) 90.4 % (16.0-70.0); Platelet Count 154 th/mm3 (150-450); Red Blood Count 4.07 mil/mm3 (4.50-5.90); Red Cell Distribution Width 17.2 % (11.6-17.2); White Blood Count 11.4 th/mm3 (4.0-11.0)
[2018-07-12 07:12] LABS: Alanine Aminotransferase 29 U/L (12-78); Albumin 2.9 g/dL (3.4-5.0); Alkaline Phosphatase 129 U/L (45-117); Anion Gap 8 meq/L (5-15); Aspartate Aminotransferase 15 U/L (15-37); Blood Urea Nitrogen 27 mg/dL (7-18); Calcium 8.1 mg/dL (8.5-10.1); Carbon Dioxide 27.6 meq/L (21.0-32.0); Chloride 104 meq/L (98-107); Glomerular Filtration Rate 89 mL/min (>89); Glucose,Random 375 mg/dL (74-106); Potassium 4.4 meq/L (3.5-5.1); Sodium 140 meq/L (136-145); Total Protein 6.9 g/dL (6.4-8.2)
[2018-07-12] MEDS: predniSONE 10 MG Tablet PO SCH ×2 (08:54→21:38)
[2018-07-12] MEDS: Multivitamin/Minerals Therapeutic Tablet PO SCH (08:55)
[2018-07-12] MEDS: Carvedilol 12.5 MG Tablet PO SCH ×2 (08:55→21:38)
[2018-07-12] MEDS: Azithromycin Inj 500 MG in Sodium Chlor 0.9% Inj 250 ML IV.SIG SCH (08:56)
[2018-07-12] MEDS: Docusate Sodium 100 MG Capsule PO SCH ×2 (08:56→21:37)
[2018-07-12] MEDS: Heparin Drip 25,000 UNIT/250 ML BAG IV.CONT PRN (09:05)
--- NOTE | 2018-07-12 10:44 | P.PNIM ---
Subjective Interval history: Patient reports no acute distress overnight. No chest pain reported. Plan for heart catheterization today. Physical Exam Vital signs: Last Vital Signs Temp 97.8 F 07/12/18 08:00 Pulse 71 07/12/18 10:00 Resp 20 07/12/18 08:00 BP 169/80 H 07/12/18 08:00 Pulse Ox 92 L 07/12/18 08:00 Intake & Output 07/10/18 07/11/18 07/12/18 07/13/18 06:59 06:59 06:59 06:59 Intake Total 1070 / 1070 2230 / 2230 350 / 350 Output Total 1850 / 1850 2600 / 2600 2080 / 2080 Balance -1850 / -1850 -1530 / -1530 150 / 150 350 / 350 Weight 102.058 kg 102.1 kg 102.6 kg Narrative: GENERAL: NAD, A&Ox3 HEAD: Normocephalic. NECK: Supple, trachea midline. No lymphadenopathy. EYES: No scleral icterus. No injection or drainage. CARDIOVASCULAR: Regular rate and rhythm without murmurs, gallops, or rubs. RESPIRATORY: Breath sounds equal bilaterally. No accessory muscle use. GASTROINTESTINAL: Abdomen soft, non-tender, nondistended. MUSCULOSKELETAL: No cyanosis, or edema. SKIN: Warm and dry. NEURO: No focal neurological deficits. Urinary Catheter Management Indwelling Urethral Catheter: Cath placed during this visit: yes Urethral indwelling: No Insertion date: 07/10/18 Insertion time: 04:19 Results Labs CBC & Chem 7: 07/12/18 05:04 07/12/18 05:04 Labs: Microbiology 07/11/18 18:07 Stool Stool Occult Blood (DERECK) - Final Hemoccult negative 07/10/18 08:10 Blood - Peripheral Aerobic Blood Culture - Preliminary No growth in 1 day 07/10/18 08:10 Blood - Peripheral Anaerobic Blood Culture - Preliminary No growth in 1 day 07/10/18 08:15 Blood - Peripheral Aerobic Blood Culture - Preliminary No growth in 1 day 07/10/18 08:15 Blood - Peripheral Anaerobic Blood Culture - Preliminary No growth in 1 day Assessment and Plan Plan 72-year-old male admitted secondary to respiratory distress with NSTEMI Heart catheterization planned for today. Patient n.p.o. Resume diet after procedure. NSTEMI Coronary artery disease Chest pain is resolved Cardiology following Continue aspirin Continue beta-blockers Continue nitrites Heparin drip Follow on telemetry Heart cath planned for tomorrow Previously on Plavix at baseline COPD exacerbation Acute on chronic respiratory failure Community-acquired pneumonia Left lower lobe pneumonia Improved, no persistence of COPD exacerbation Continue oxygen supplementation as needed Discontinue steroids Pulmonary treatments as needed Continue Rocephin Continue azithromycin Hypertension Continue baseline treatment Follow blood pressures Adjust treatments as needed Continue Coreg Hyperlipidemia Continue present treatment Follow as an outpatient Hyperlipidemia May be related to steroids Follow blood sugars Insulin sliding scale Diabetic diet DVT prophylaxis Heparin drip Progress Note: Quality VTE Deep Vein Thrombosis/Pulmonary Embolism Present on Admission: No
[2018-07-12] MEDS ORDERED: Artificial Tears Opth Drops 15 ML Bottle EACH EYE PRN (12:53)
--- NOTE | 2018-07-12 13:21 | P.PNCA ---
Subjective Interval history: Patient denies any CP, pressure, palpitations, dizziness, edema or SOB. Medications and Allergies Allergies Allergy/AdvReac Type Severity Reaction Status Date / Time CATALINO Inhibitors Allergy Anaphylaxis Verified 07/10/18 02:58 Home Medications Medication Instructions Recorded Confirmed Type albuterol sulfate [ProAir HFA] 2 puff INHALATION Q4-6H PRN 07/10/18 07/10/18 History aspirin 81 mg PO DAILY 07/10/18 07/10/18 History bumetanide 1 mg PO DAILY 07/10/18 07/10/18 History carvedilol [Coreg] 25 mg PO BID 07/10/18 07/10/18 History clopidogrel [Plavix] 75 mg PO DAILY 07/10/18 07/10/18 History rosuvastatin [Crestor] 10 mg PO DAILY 07/10/18 07/10/18 History Active Medications: Active Medications Acetaminophen (Tylenol) 650 mg PO Q4H PRN PRN Reason: Temp > 100.4 Albuterol (Ventolin Hfa Inh) 2 puff INH Q4H PRN PRN Reason: Shortness Of Breath Albuterol (Duoneb Neb ([facility])) 1 ampul NEB Q6HR WHILE AWAKE NEB FOR[facility], 1928–1983 Stop: 07/12/18 19:59 Last Admin: 07/12/18 07:39 Dose: 1 ampul Artificial Tears (Tears Naturale Opth Drops) 1 drop EACH EYE Q4H PRN PRN Reason: Dry Eyes Aspirin (Aspirin Chew) 81 mg PO DAILY [facility], [facility]–1983 Last Admin: 07/12/18 08:54 Dose: 81 mg Atorvastatin Calcium (Lipitor) 40 mg PO DAILY [facility], [facility]–1983 Last Admin: 07/12/18 08:55 Dose: 40 mg Bumetanide (Bumex) 1 mg PO DAILY [facility], [facility]–1983 Last Admin: 07/12/18 08:54 Dose: 1 mg Carvedilol (Coreg) 25 mg PO BID [facility], [facility]1983 Last Admin: 07/12/18 08:55 Dose: 25 mg Clopidogrel Bisulfate (Plavix) 75 mg PO DAILY [facility], [facility]–1983 Last Admin: 07/12/18 08:55 Dose: 75 mg Dextrose (D50w Vial) 50 ml IV.PUSH UNSCH PRN PRN Reason: PER HYPOGLYCEMIA PROTOCOL Diphenhydramine HCl (Benadryl) 50 mg PO HS PRN PRN Reason: SEE LABEL COMMENTS Docusate Sodium (Colace) 100 mg PO BID [facility], [facility]1983 Last Admin: 07/12/18 08:56 Dose: Not Given Famotidine (Pepcid) 20 mg PO HS [facility], [facility]1983 Last Admin: 07/11/18 22:30 Dose: 20 mg Glucagon (Glucagon Inj) 1 mg OTHER PRN PRN PRN Reason: For hypoglycemia Ceftriaxone Sodium 1,000 mg/ (Sodium Chloride) 100 mls @ 200 mls/hr IV.SIG Q24H [facility], [facility] Last Infusion: 07/12/18 10:08 Dose: Infused Azithromycin 500 mg/ Sodium (Chloride) 250 mls @ 250 mls/hr IV.SIG Q24H [facility], [facility]1983 Last Infusion: 07/12/18 10:07 Dose: Infused Heparin Sodium/Dextrose (Heparin/D5w 25,000 U/250 Ml) 25,000 unit in 250 mls @ 0 mls/hr IV.CONT TITRATE PRN; Protocol PRN Reason: Per Protocol Last Admin: 07/12/18 09:05 Dose: 1,200 units/hr, 12 mls/hr Lactobacillus Acidophilus (Lactinex Pkt) 1 gm PO TID [facility], [facility]1983 Last Admin: 07/12/18 08:56 Dose: 1 gm Metoclopramide HCl (Reglan Inj) 10 mg IV.PUSH Q6HR [facility], [facility]1983; Protocol Last Admin: 07/12/18 06:47 Dose: 10 mg Multivitamins/Minerals (Theragran-M) 1 tab PO DAILY [facility], [facility]1983 Last Admin: 07/12/18 08:55 Dose: 1 tab Ondansetron HCl (Zofran Inj) 4 mg IV.PUSH Q6H PRN PRN Reason: NAUSEA OR VOMITING Prednisone (Deltasone) 30 mg PO BID [facility], [facility]1983 Last Admin: 07/12/18 08:54 Dose: 30 mg Sodium Chloride (Ns Flush) 2 ml IV.FLUSH PRN PRN PRN Reason: FLUSH AFTER USING IV ACCESS Sodium Chloride (Ns Flush) 2 ml IV.FLUSH BID [facility], [facility]1983 Last Admin: 07/12/18 08:57 Dose: 2 ml Tamsulosin HCl (Flomax) 0.4 mg PO DAILY [facility]1983 Last Admin: 07/12/18 08:55 Dose: 0.4 mg Physical Exam Vital signs: Vital Signs 07/11/18 14:00 07/11/18 14:22 07/11/18 15:00 Temperature Pulse Rate 64 66 65 Respiratory Rate 18 Blood Pressure Pulse Oximetry 07/11/18 16:00 07/11/18 17:00 07/11/18 18:00 Temperature 98.1 F Pulse Rate 65 77 85 Respiratory Rate 18 Blood Pressure 152/67 H Pulse Oximetry 91 L 07/11/18 19:00 07/11/18 19:01 07/11/18 20:00 Temperature 97.4 F L Pulse Rate 64 63 62 Respiratory Rate 18 18 Blood Pressure 164/74 H Pulse Oximetry 91 L 92 L 07/11/18 21:00 07/11/18 22:00 07/11/18 23:00 Temperature Pulse Rate 60 62 68 Respiratory Rate Blood Pressure Pulse Oximetry 07/11/18 23:56 07/12/18 00:00 07/12/18 01:00 Temperature Pulse Rate 62 50 L Respiratory Rate 16 Blood Pressure 176/80 H Pulse Oximetry 94 L 92 L 07/12/18 02:00 07/12/18 03:00 07/12/18 04:00 Temperature Pulse Rate 56 L 50 L 61 Respiratory Rate 18 Blood Pressure 142/69 H Pulse Oximetry 92 L 07/12/18 05:00 07/12/18 06:00 07/12/18 07:00 Temperature Pulse Rate 53 L 48 L 52 L Respiratory Rate Blood Pressure Pulse Oximetry 07/12/18 07:41 07/12/18 08:00 07/12/18 09:00 Temperature 97.8 F Pulse Rate 66 53 L 76 Respiratory Rate 18 20 Blood Pressure 169/80 H Pulse Oximetry 97 92 L 07/12/18 10:00 07/12/18 11:00 07/12/18 12:00 Temperature 97.9 F Pulse Rate 71 53 L 56 L Respiratory Rate 18 Blood Pressure 158/79 H Pulse Oximetry 92 L 07/12/18 13:00 Temperature Pulse Rate 50 L Respiratory Rate Blood Pressure Pulse Oximetry Intake & Output 07/11/18 07/12/18 07/12/18 18:59 06:59 18:59 Intake Total 1740 / 1740 490 / 490 350 / 350 Output Total 1350 / 1350 730 / 730 Balance 390 / 390 -240 / -240 350 / 350 Weight 102.6 kg Intake: IV 600 / 600 250 / 250 350 / 350 Heparin/D5W 25,000 U/250 mL 25, 250 / 250 250 / 250 000 unit In 250 ml @ Per Protocol IV.CONT TITRATE PRN Rx #:[id number] Azithromycin Inj 500 MG In NS 250 / 250 250 / 250 Inj 250 ML @ 250 mls/hr IV.SIG Q24H ERNIE Rx#:[id number] Rocephin Inj 1,000 MG In NS Inj 100 / 100 100 / 100 100 ML @ 200 mls/hr IV.SIG Q24H ERNIE Rx#:[id number] Oral 1140 / 1140 240 / 240 Output: Urine 1350 / 1350 730 / 730 Other: Date of Last Bowel Movement 07/11/18 07/11/18 07/11/18 # Bowel Movements 1 - Constitutional no acute distress - Routine HEENT Exam Head: Present: normocephalic Eye: Present: PERRL ENT: Present: mucous membranes moist - Routine Neck Exam Present: supple - Routine Respiratory Exam Present: decreased breath sounds, CTA bilaterally Comments: Left lower lobe - Routine Cardiovascular Exam Present: S1, S2. Absent: murmur, gallop, rubs - Routine Abdominal Exam Present: normoactive bowel sounds - Routine Extremities Exam Present: full ROM, pulses intact, normal capillary refill. Absent: cyanosis, clubbing, edema - Routine Skin Exam Present: intact - Routine Neurological Exam Present: oriented X3 - Detailed Neurological Exam: Coma Scale Eye Opening: Spontaneous Verbal Response: Oriented Motor Response: Obey commands Red Level Coma Scale Total: 15 - Routine Psychiatric Exam Present: normal affect - Urinary Catheter Management Indwelling Urethral Catheter Cath placed during this visit: yes Urethral indwelling: No Reason for continuing: Acute urinary retention Insertion date: 07/10/18 Insertion time: 04:19 Results 07/12/18 05:04 07/12/18 05:04 Cardiac Enzymes 07/10/18 07/12/18 Range/Units 15:44 05:04 AST 15 (15-37) U/L Troponin I 2.92 H* (0.02-0.05) ng/mL Coagulation 07/10/18 07/11/18 07/11/18 Range/Units 15:44 00:29 05:53 APTT 58.1 H D 53.6 H 65.1 H D (23.4-31.7) sec 07/12/18 Range/Units 05:04 APTT 49.8 H D (23.4-31.7) sec Lipids 07/11/18 Range/Units 05:53 Triglycerides 59 (42-150) mg/dL Cholesterol 112 L (120-200) mg/dL HDL Cholesterol 57.6 (40.0-60.0) mg/dL Cholesterol/HDL Ratio 1.94 Ratio CBC 07/11/18 07/12/18 Range/Units 05:53 05:04 WBC 13.5 H 11.4 H (4.0-11.0) th/mm3 RBC 4.19 L 4.07 L (4.50-5.90) mil/mm3 Hgb 14.0 13.6 (13.0-17.0) gm/dL Hct 40.5 40.4 (39.0-51.0) % Plt Count 162 154 (150-450) th/mm3 Neut # (Auto) 12.1 H 10.3 H (1.8-7.7) th/mm3 Lymph # (Auto) 0.6 L 0.5 L (1.0-4.8) th/mm3 [place] # (Auto) 0.9 0.6 (0.0-0.9) th/mm3 Eos # (Auto) 0.0 0.0 (0.0-0.4) th/mm3 Baso # (Auto) 0.0 0.0 (0.0-0.2) th/mm3 Comprehensive Metabolic Panel 07/11/18 07/12/18 Range/Units 05:53 05:04 Sodium 138 140 (136-145) meq/L Potassium 4.3 4.4 (3.5-5.1) meq/L Chloride 102 104 (98-107) meq/L Carbon Dioxide 26.1 27.6 (21.0-32.0) meq/L BUN 26 H 27 H (7-18) mg/dL Creatinine 0.83 0.84 (0.60-1.30) mg/dL Calcium 8.4 L 8.1 L (8.5-10.1) mg/dL AST 15 (15-37) U/L ALT 29 (12-78) U/L Alkaline Phosphatase 129 H (45-117) U/L Total Protein 6.9 (6.4-8.2) g/dL Albumin 2.9 L (3.4-5.0) g/dL Intake and Output 12/04/2007/12/18 07/12/18 22:59 06:59 14:59 Intake Total 1140 / 1140 490 / 490 350 / 350 Output Total 1350 / 1350 730 / 730 Balance -210 / -210 -240 / -240 350 / 350 Intake: IV 250 / 250 350 / 350 Heparin/D5W 25,000 U/250 mL 25, 250 / 250 000 unit In 250 ml @ Per Protocol IV.CONT TITRATE PRN Rx #:[id number] Azithromycin Inj 500 MG In NS 250 / 250 Inj 250 ML @ 250 mls/hr IV.SIG Q24H ERNIE Rx#:[id number] Rocephin Inj 1,000 MG In NS Inj 100 / 100 100 ML @ 200 mls/hr IV.SIG Q24H ERNIE Rx#:[id number] Oral 1140 / 1140 240 / 240 Output: Urine 1350 / 1350 730 / 730 Other: Date of Last Bowel Movement 07/11/18 07/11/18 07/11/18 # Bowel Movements 1 Weight 102.6 kg Assessment and Plan - Assessment (1) Elevated troponin Code(s): R74.8 - Abnormal levels of other serum enzymes Status: Acute (2) Coronary artery disease Code(s): I25.10 - Atherosclerotic heart disease of [place] coronary artery without angina pectoris Status: Acute (3) Severe chronic obstructive pulmonary disease Code(s): J44.9 - Chronic obstructive pulmonary disease, unspecified Status: Acute (4) Hypercholesteremia Code(s): E78.00 - Pure hypercholesterolemia, unspecified Status: Acute - Plan Patient has elevated troponin levels c/w NSTEMI, we will proceed with cardiac catheterization. Keep patient NPO after breakfast. Have consent signed and placed on chart. Risk associated with cardiac catheterization include but not limited to bleeding and infection at the insertion site, damage to the coronary arteries, acute kidney injury, stroke, heart attack and/or possible . Risk discussed with the patient and his significant other; he wishes to proceed with cardiac catheterization. We will continue to follow patient during his hospitalization. The patient was seen and evaluated by Dr. Pozo who participated in care, management and decision making. - Attending Attestation Patient seen and examined. I reviewed and agree with the evaluation and plan as presented. Proceed with cardiac cath and coronary intervention if necessary.
[2018-07-12] MEDS ORDERED: Lidocaine 1% Inj 50 ML Vial ONE (14:06)
[2018-07-12] MEDS ORDERED: Heparin/NS PF Inj 1,000 ML ONE (14:06)
[2018-07-12] MEDS ORDERED: fentaNYL Citrate Inj 100 MCG/2 ML Ampul ONE ×2 (14:06→15:42)
[2018-07-12] MEDS ORDERED: Heparin 10,000 UNITS/10 ML Vial (for IV use) ONE (14:06)
[2018-07-12] MEDS ORDERED: Cangrelor Inj 50,000 MCG Vial ONE (15:33)
[2018-07-12] MEDS ORDERED: Iohexol 350 MG/ML 100 ML Vial (for Cath Lab) IVCONTRAST ONE (16:28)
--- NOTE | 2018-07-12 16:30 | CATHPROC ---
Seventymm HIS Report Study Information Study Number Admission Scheduled Start Study Start [id number] Jul 10 2018 8:25AM 07/12/2018 Jul 12 2018 1:38PM [place] Service Cardiac Pacer/ICD Admit Source Facility Department Emergency department [facility] - Manager Concrete Physician and Clinical Staff Initial Jovanni Palacios Barge Worker Cathy Toscano,MOHINDER Barge Worker Ariana Crockett RN Recorder Yanique Boland,TITLE INSPECTOR TECH2 Scrub Cristina Chang ,RT(R) Procedures Performed Procedure Location (Site) Vessel Name Angiogram LV LV Ventricle Coronary Angiograms LCA Left Coronary Coronary Angiograms RCA Right Coronary Coronary Angiograms KINCAID-LAD Left Coronary Coronary Angiograms SVG-DIAG Left Coronary Drug Eluting Inflatio SVG-DIAG Left Coronary PTCA SVG-DIAG Left Coronary Wire insertion Fem Art (left) Femoral Art Equipment Time Metal Sander Description Size Mfg Part Number Used/Scraped TRANSDUCER, TRUWAVE [id number] 13:39 PATEL WISEMAN * Used W/STOCKCOCK *[id number] 534-546T *[id number] [id number] *[id number] 534-548T *[id number] 534-560T *[id number] 534-520T *[id number] 670-180-00 *[id number] 595-[id number] *[id number] 15:55 DAIG/[employer]. [employer] ANGIOSEAL, FR6 VIP FR 6 Used *[id number] 13:39 [employer] BLANKET,WARM AIR CCL * Used *[id number] 13:39 [employer] PACK, CCL CUSTOM * Used *[id number] 13:39 Pelliano PACER PEN, SKIN DUAL W/ RULER * Used *[id number] 15:41 MEDTRONIC BALLOON, 2.5 X 10MM EUPHORA 10MM Used *[id number] PIG ANG 145 DXTERITY [id number] 14:25 MEDTRONIC FR 5 Used CATHETER *[id number] [id number] 15:48 MEDTRONIC STENT, 3.0 15MM FREDA 3.0 15MM Used *[id number] WIRE, WHOLEY .035 MOD-J 145 [id number] 15:06 MEDTRONIC 145CM Used CM *[id number] 15:44 markedup MEDICAL 30 LISA INDEFLATOR Used *[id number] 15:32 MERIT MEDICAL SHEATH, FR6.5 PRELUDE 11CM FR 6.5 038ACT Used *[id number] 13:39 [employer] MEDICAL WIRE, 3MMJ .035 180CM 180CM Used *[id number] 15:03 [employer]IT MEDICAL WIRE, EXCHANGE 260CM 3MMJ 260CM Used *[id number] PROBE COVER, STERILE [id number] 13:39 [employer] MED[employer] * Used ULTRASOUND W/ GEL *[id number] 13:39 NAMIC MANIFOLD, 4 PORT * Used *[id number] [id number] 13:39 NAMIC TUBING, HIGH PRESSURE 48" 48" Used *6093621 13:39 NYCOMED OMNIPAQUE, 350 MG, 150ML 150ML [id number] Used [id number] 13:39 TERUMO MEDICAL SHEATH, FR5 TERUMO (10CM) FR 5 Used *[id number] Equipment Model, Serial, Lot Number and Expiration Data Description Model Number Serial Number Lot Number Expiration Date ANGIOSEAL, FR6 VIP [id number] 12-31-2018 PIG ANG 145 DXTERITY CATHETER [id number] 11-26-2019 STENT, 3.0 15MM FREDA [id number] 12-27-2019 WIRE, WHOLEY .035 MOD-J 145 [id number] 03-03-2019 CM WIRE, EXCHANGE 260CM 3MMJ [id number] 05-02-2021 History: Current Medications Medication Dosage/Unit Route Frequency Last Date/Time Taken ASA CARVEDILOL CRESTOR Albuterol PLAVIX History: Allergies Allergy Reaction captopril lisinopril benazepril quinapril fosinopril enalaprilat fire ant CATALINO Inhibitors Anaphylaxis History: Risk Factors Family History of Hypertension Dyslipidemia Previous CA Previous Heart Failure Premature CAD Yes Yes No Yes No Prior Valve Prior PCI Prior PCIDate Prior CABG Prior CABGDate Surgery No Yes 08/03/1999 Yes 08/03/1997 Cerebrovascular Peripheral Artery Chronic Lung On Dialysis Diabetes Disease Disease Disease No No Yes Yes No History: Symptoms/Diagnosis Selection Items SOB History: Stress Tests Stress or Imaging Studies Performed No History: Other Disease Selection Items COPD History: Other Current Smoker Method Quit No Cigarettes 9 Years Ago Labs Hgb (g/dl) Hct (%) WBC (l/cumm) Platelets (thousands) 11.60-17.00 35.00-51.00 4.00-11.00 150.00-450.00 13.6 40.4 11.4 154 Glucose (mg/dl) BUN (mg/dl) Creatinine (mg/dl) BUN:Creatinine (1:x) 74.00-106.00 7.00-18.00 0.50-1.30 10.00-20.00 375 27 0.8 33.8 Na (meq/l) K (meq/l) 136.00-145.00 3.50-5.10 140 4.4 INR (PTT:PT) 0.90-1.10 1 Troponin I (ng/ml) CPK (u/l) CPK-MB (ng/ML) 0.02-0.05 26.00-308.00 0.50-3.60 2.92 52 Not Drawn Medication Medication Total Dose (Bolus/Oral) Medication Total Dosage/Unit 1% XYLOCAINE 20 mL BRILINTA 180 mg FENTANYL 175 mcg HEPARIN 8000 units NTG (IC) 200 mcg OXYGEN 4 l/min VERSED 4 mg Medications (Bolus/Oral) Medication Time Given Dosage/Unit Administered By Reason OXYGEN 07/12/2018 2:01:14 PM 4 l/min Patient arrived on 4 l/min OXYGEN via Nasal. VERSED 07/12/2018 2:19:10 PM 0.5 mg Hesher, Cathy 0.5 mg VERSED given in lab by Cathy Toscano RN in Left Wrist via Peripheral IV. Ordered by Jovanni Pozo. FENTANYL 07/12/2018 2:20:16 PM 25 mcg Hesher, Cathy 25 mcg FENTANYL given in lab by Cathy Toscano RN in Left Wrist via Peripheral IV. Ordered by Jovanni Baig. VERSED 07/12/2018 2:22:11 PM 0.5 mg Hesher, Cathy 0.5 mg VERSED given in lab by Cathy Toscano RN in Left Wrist via Peripheral IV. Ordered by Jovanni Pozo. FENTANYL 07/12/2018 2:23:20 PM 25 mcg Hesher, Cathy 25 mcg FENTANYL given in lab by Cathy Toscano RN in Left Wrist via Peripheral IV. Ordered by Jovanni Baig. 1% XYLOCAINE 07/12/2018 2:32:52 PM 20 mL Jovanni Pozo 20 mL 1% XYLOCAINE given in lab by Jovanni Pozo in Left Groin via Subcutaneous. Ordered by Jovanni Pozo. VERSED 07/12/2018 2:55:42 PM 0.5 mg Hesher, Cathy 0.5 mg VERSED given in lab by Cathy Toscano RN in Left Wrist via Peripheral IV. Ordered by Jovanni Pozo. VERSED 07/12/2018 3:11:51 PM 0.5 mg Hesher, Cathy 0.5 mg VERSED given in lab by Cathy Toscano RN in Left Wrist via Peripheral IV. Ordered by Jovanni Pozo. FENTANYL 07/12/2018 3:12:05 PM 25 mcg Hesher, Cathy 25 mcg FENTANYL given in lab by Cathy Toscano RN in Left Wrist via Peripheral IV. Ordered by Jovanni Baig. FENTANYL 07/12/2018 3:28:41 PM 25 mcg Hesher, Cathy 25 mcg FENTANYL given in lab by Cathy Toscano RN in Left Wrist via Peripheral IV. Ordered by Jovanni Baig. HEPARIN 07/12/2018 3:31:06 PM 8000 units Dorcas, Cathy 8000 units HEPARIN given in lab by Cathy Toscano RN in Left Wrist via Peripheral IV. Ordered by Jovanni Perea. VERSED 07/12/2018 3:32:20 PM 1 mg Hesher, Cathy 1 mg VERSED given in lab by Cathy Toscano RN in Left Wrist via Peripheral IV. Ordered by Lindsey Pozo. NTG (IC) 07/12/2018 3:46:22 PM 200 mcg Jovanni Pozo 200 mcg NTG (IC) given in lab by Jovanni Pozo via Intra-coronary. Ordered by Jovanni Pozo. VERSED 07/12/2018 3:48:40 PM 1 mg Hesher, Cathy 1 mg VERSED given in lab by Cathy Toscano RN in Left Wrist via Peripheral IV. Ordered by Lindsey Pozo. FENTANYL 07/12/2018 3:49:21 PM 25 mcg Hesher, Cathy 25 mcg FENTANYL given in lab by Cathy Toscano RN in Left Wrist via Peripheral IV. Ordered by Jovanni Baig. FENTANYL 07/12/2018 3:50:33 PM 25 mcg Cathy Toscano 25 mcg FENTANYL given in lab by Cathy Toscano RN in Left Wrist via Peripheral IV. Ordered by Jovanni Baig. FENTANYL 07/12/2018 3:53:52 PM 25 mcg Cathy Toscano 25 mcg FENTANYL given in lab by Cathy Toscano RN in Left Wrist via Peripheral IV. Ordered by Jovanni Baig. BRILINTA 07/12/2018 4:15:06 PM 180 mg Cathy Toscano 180 mg BRILINTA given in lab by Cathy Toscano RN via Oral. Ordered by Jovanni Pozo. Medication (Drip) Medication Time Given Dosage/Unit Concentration/Unit Diluent (ml) Solution IV Solutions 07/12/2018 1:58:03 PM 0 mL (IV) 500 NaCl .9 Patient arrived on IV Solutions in Left Hand via Peripheral IV. Pump/Drip Flow = 20 ml/hr using NaCl .9. IV Solutions 07/12/2018 2:10:07 PM 0 mL (IV) 500 NaCl .9 IV Solutions given in lab by Cathy Toscano RN in Left Wrist via Peripheral IV. Pump/Drip Flow = 20 ml/hr using NaCl .9. IV solutions switched to left wrist IV site. KENGREAL BOLUS 07/12/2018 3:43:44 PM 15.3 mL 15.3 mL KENGREAL BOLUS given in lab by Cathy Toscano RN in Left Wrist via Peripheral IV. Ordered by Jovanni Pozo. KENGREAL DRIP 07/12/2018 3:44:10 PM 4 mcg/kg/min 50 mg 250 NaCl .9 4 mcg/kg/min KENGREAL DRIP given in lab by Cathy Toscano RN in Left Wrist via Peripheral IV. Pump/D rip Flow = 123.24 ml/hr using NaCl .9 with a concentration of 50 mg in 250 ml. Ordered by Jovanni oPzo. NIPRIDE 07/12/2018 3:47:34 PM 50 mcg 50 mcg NIPRIDE given in lab by Jovanni Pozo via Intra-coronary. Ordered by Jovanni Pozo. NIPRIDE 07/12/2018 3:48:34 PM 50 mcg 50 mcg NIPRIDE given in lab by Jovanni Pozo via Intra-coronary. Ordered by Jovanni Pozo. NIPRIDE 07/12/2018 3:53:20 PM 50 mcg 50 mcg NIPRIDE given in lab by Jovanni Pozo via Intra-coronary. Ordered by Jovanni Pozo. Initial Case Assessment Cardiovascular HR Rhythm NIBP Chest Pain 52 sb 198/80 0 Circulatory - Right Pulses Dorsalis Pedis Femoral 1 2 Scale (0,1,2,3,4,d) Circulatory - Left Pulses Dorsalis Pedis Femoral 1 2 Scale (0,1,2,3,4,d) Neurological State Oriented to time-place- Alert Moves all extremities person Respiration - General Respiration Rate SpO2 (%) O2 (lpm) (B/min) 25 91 4 Chronological Log Time Study Chronological Log 13:53:35 Patient arrived via Bed with irchter catheter in place. 13:53:42 Patient Name, D.O.B, / Armband Verified By R.N. 13:57:47 Consent signed by the physician and the patient and verified by the Manager Concrete staff. 13:57:48 Pre-op and post- op instructions given; patient acknowledges understanding of instructions. 13:57:48 Verbal Stimulation=2 Physical Stimulation=2 Airway=2 Respiration=2 TOTAL=8. (0=absent, 1=li mited, 2=present) 13:57:56 Presedation assessment performed by Manager Concrete RN. 13:57:59 Patient has been NPO for More than 6Hrs. 13:58:00 Skin Breakdown-none 13:58:01 Lizzy Prominences Protected 13:58:02 A # 20 IV was noted in the Hand (left). Grade = 0 leaking 13:58:03 Patient arrived on IV Solutions in Left Hand via Peripheral IV. Pump/Drip Flow = 20 ml/hr u sing NaCl .9. 13:58:03 History and physical on the chart or being dictated. Vitals capture started with the following parameters, Patient=Adult, Interval=5 min, Initial Pr nuldgd=328 mmHg, 13:58:07 Deflation Rate=5 mmHg, Cuff placed on Left Arm 14:00:02 WG=912 bpm, LGWQ=710/80 mmhg, SpO2=91.0 %, Resp=28 B/min 14:01:14 Patient arrived on 4 l/min OXYGEN via Nasal. Assessment: Initial Case, HR=52 BPM, Rhythm=sb, PZPV=267/80 mmhg, Chest Pain=0 Right Pulses: Rd Ped=1, Femoral=2 14:02:15 Left Pulses: Rd Ped=1, Femoral=2 Neurological: State=Alert, Ox3, TANG Respiration: Resp=25 B/min, SpO2=91 %, O2=4 lpm 14:02:52 Reference ECG taken 14:03:58 HR=70 bpm, AMFK=691/82 mmhg, Resp=26 B/min 14:08:57 HR=55 bpm, CRXJ=321/79 mmhg, SpO2=90 %, Resp=18 B/min 14:09:12 Bilateral groins prepped with 2% chlorhexidine, and draped after a 3 minute waiting time. 14:09:29 A # 20 IV was started in the Wrist LT. Grade = 0 IV Solutions given in lab by Cathy Toscano RN in Left Wrist via Peripheral IV. Pump/Drip Flow = 20 ml/hr using NaCl 14:10:07 .9. IV solutions switched to left wrist IV site. 14:12:04 History and physical on the chart or being dictated. 14:14:02 HR=53 bpm, WDZZ=020/81 mmhg, SpO2=89.0 %, Resp=22 B/min 14:14:28 Pressure channel 1 zeroed. 14:15:29 paged 14:17:15 responded 14:19:05 HR=49 bpm, BMUR=978/79 mmhg, SpO2=94.0 %, Resp=18 B/min 14:19:10 0.5 mg VERSED given in lab by Cathy Toscano RN in Left Wrist via Peripheral IV. Ordered b y Jovanni Pozo. 14:20:16 25 mcg FENTANYL given in lab by Cathy Toscano RN in Left Wrist via Peripheral IV. Ordered by Jovanni Pozo. 14:22:11 0.5 mg VERSED given in lab by Cathy Toscano RN in Left Wrist via Peripheral IV. Ordered b y Jovanni Pozo. 14:23:20 25 mcg FENTANYL given in lab by Cathy Toscano RN in Left Wrist via Peripheral IV. Ordered by Jovanni Pozo. 14:24:00 HR=52 bpm, HYQX=388/83 mmhg, SpO2=90.0 %, Resp=17 B/min 14:26:38 MD arrived. 14:29:03 HR=52 bpm, RHTY=601/78 mmhg, SpO2=90.0 %, Resp=14 B/min Time Out. Correct patient, correct procedure, correct physician, labs, allergies, and equipment verified with laboratory secretary 14:30:24 team present. Fire risk assesment completed (see hard stop sheet for coding). Time Out Conc urred by MD and individual staff in procedure. 14:32:41 Case Start 14:32:52 20 mL 1% XYLOCAINE given in lab by Jovanni Pozo in Left Groin via Subcutaneous. Ordered by Jovanni Pozo. 14:34:02 HR=50 bpm, QPYP=644/79 mmhg, SpO2=91.0 %, Resp=19 B/min 14:35:36 Access site was Left Femoral Artery. 14:35:41 A SHEATH, FR5 TERUMO (10CM) FR 5 was advanced into the Fem Art (left) using the Percutaneou s technique. A PIG ANG 145 DXTERITY CATHETER FR 5 was advanced over a wire. OMNIPAQUE, 350 MG, 150ML 150ML w as used 14:36:44 for injections. Recorded Pressure: LV, HR=54, Condition=Condition 1 14:37:30 (Left Ventricle) LV 177/7/9 14:39:03 HR=50 bpm, PBTZ=163/71 mmhg, SpO2=90.0 %, Resp=19 B/min 14:39:16 The LV was injected at 10 cc/sec for a total of 30. contrast used. Recorded Pressure: LV, Ao, HR=52, Condition=Condition 1 14:40:44 (Left Ventricle) LV 191/7/17, (Aorta) Ao 191/58/105 14:41:16 Catheter was removed A JL 4.0 INFINITI CATHETER FR 5 was advanced over a wire. OMNIPAQUE, 350 MG, 150ML 150ML was us ed for 14:41:21 injections. After removing the current catheter a JL 5.0 INFINITI CATHETER FR 5 was advanced over a WIRE, 3 MMJ .035 180CM 14:42:55 180CM. 14:43:13 Activated Clotting Time Drawn 14:44:43 HR=48 bpm, GYSO=497/77 mmhg, SpO2=93.0 %, Resp=15 B/min After removing the current catheter a AL 2 INFINITI CATHETER FR 5 was advanced over a WIRE, 3MM J .035 180CM 14:46:22 180CM. 14:47:38 The LCA was injected and visualized at various angles. OMNIPAQUE, 350 MG, 150ML 150ML used . 14:49:05 HR=50 bpm, UEGH=532/74 mmhg, SpO2=93.0 %, Resp=19 B/min 14:50:12 ACT (Normal Range 90-180) = 122 After removing the current catheter a AR MOD INFINITI CATHETER FR 5 was advanced over a WIRE, 3 MMJ .035 180CM 14:51:53 180CM. 14:54:02 HR=49 bpm, YQPR=450/87 mmhg, SpO2=95.0 %, Resp=16 B/min 14:55:42 0.5 mg VERSED given in lab by Cathy Toscano, RN in Left Wrist via Peripheral IV. Ordered b Jovanni Dudley. 14:57:29 The RCA was injected and visualized at various angles. OMNIPAQUE, 350 MG, 150ML 150ML used . 14:59:06 HR=56 bpm, NGFM=124/87 mmhg, SpO2=92.0 %, Resp=16 B/min 14:59:11 The SVG-DIAG was injected and visualized at various angles. OMNIPAQUE, 350 MG, 150ML 150ML used. After removing the current catheter a AR MOD INFINITI CATHETER FR 5 was advanced over a WIRE, E XCHANGE 260CM 15:01:19 3MMJ 260CM. 15:04:05 HR=56 bpm, OPPK=821/83 mmhg, SpO2=92.0 %, Resp=15 B/min 15:06:33 The previous wire was exchanged for a WIRE, WHOLEY .035 MOD-J 145 CM 145CM. 15:07:56 The previous wire was exchanged for a WIRE, EXCHANGE 260CM 3MMJ 260CM. 15:08:08 Catheter was removed A HAYLIE INFINITI CATHETER FR 5 was advanced over a wire. OMNIPAQUE, 350 MG, 150ML 150ML was used for 15:08:09 injections. 15:08:37 Wire removed 15:09:08 HR=54 bpm, YHLV=557/87 mmhg, SpO2=95.0 %, Resp=20 B/min 15:09:58 The KINCAID-LAD was injected and visualized at various angles. OMNIPAQUE, 350 MG, 150ML 150ML used. 15:10:48 Catheter was removed 15:11:51 0.5 mg VERSED given in lab by Cathy Toscano RN in Left Wrist via Peripheral IV. Ordered b y Jovanni Pozo. 15:12:05 25 mcg FENTANYL given in lab by Cathy Toscano RN in Left Wrist via Peripheral IV. Ordered by Jovanni Pozo. 15:14:07 HR=58 bpm, UXXX=699/87 mmhg, SpO2=94.0 %, Resp=15 B/min 15:19:08 HR=54 bpm, MYOC=575/88 mmhg, SpO2=92.0 %, Resp=15 B/min 15:24:07 HR=51 bpm, ZHWW=876/85 mmhg, SpO2=94.0 %, Resp=19 B/min 15:28:41 25 mcg FENTANYL given in lab by Cathy Toscano RN in Left Wrist via Peripheral IV. Ordered by Jovanni Pozo. 15:29:53 HR=56 bpm, YRYH=686/86 mmhg, SpO2=96.0 %, Resp=20 B/min 15:31:06 8000 units HEPARIN given in lab by Cathy Toscano RN in Left Wrist via Peripheral IV. Orde red by Jovanni Pozo. A SHEATH, FR6.5 PRELUDE 11CM FR 6.5 was exchanged in the Fem Art (left). This was necessary in order to 15:31:41 accomodate a larger catheter. 15:32:20 1 mg VERSED given in lab by Cathy Toscano RN in Left Wrist via Peripheral IV. Ordered by Jovanni Pozo. 15:32:26 A LCB GUIDE CATHETER FR 6 was advanced over a wire. OMNIPAQUE, 350 MG, 150ML 150ML was used for injections. 15:33:18 The SVG-DIAG was injected and visualized at various angles. OMNIPAQUE, 350 MG, 150ML 150ML used. 15:34:09 HR=59 bpm, CJAF=389/89 mmhg, SpO2=91.0 %, Resp=14 B/min 15:37:37 Catheter was removed 15:38:33 A AR 1 GUIDE CATHETER FR 6 was advanced over a wire. OMNIPAQUE, 350 MG, 150ML 150ML was use d for injections. 15:39:41 The SVG-DIAG was injected and visualized at various angles. OMNIPAQUE, 350 MG, 150ML 150ML used. 15:39:53 HR=60 bpm, CFON=649/86 mmhg, SpO2=97.0 %, Resp=27 B/min 15:40:06 A WIRE, ATW MARKER 195CM 195CM was inserted via Fem Art (left). 15:41:31 Activated Clotting Time Drawn 15:41:39 A BALLOON, 2.5 X 10MM EUPHORA 10MM was inserted over WIRE, ATW MARKER 195CM 195CM via the S VG-DIAG. A BALLOON, 2.5 X 10MM EUPHORA 10MM over a WIRE, ATW MARKER 195CM 195CM in the SVG-DIAG was infl ated 15:43:27 using a 30 LISA INDEFLATOR at 17 lisa for 22 sec. 15.3 mL KENGREAL BOLUS given in lab by Cathy Toscano RN in Left Wrist via Peripheral IV. Orde red by Sánchez, 15:43:44 Jovanni. 4 mcg/kg/min KENGREAL DRIP given in lab by Cathy Toscano RN in Left Wrist via Peripheral IV. Pump/Drip Flow = 15:44:10 123.24 ml/hr using NaCl .9 with a concentration of 50 mg in 250 ml. Ordered by Jovanni Pozo. 15:45:25 HR=54 bpm, ATWV=778/93 mmhg, SpO2=97.0 %, Resp=15 B/min 15:46:18 Balloon Removed. 15:46:22 200 mcg NTG (IC) given in lab by Jovanni Pozo via Intra-coronary. Ordered by Kike Pozo 15:47:12 ACT (Normal Range 90-180) = 308 15:47:34 50 mcg NIPRIDE given in lab by Jovanni Pozo via Intra-coronary. Ordered by Baudilio Pozo 15:48:34 50 mcg NIPRIDE given in lab by Jovanni Pozo via Intra-coronary. Ordered by Baudilio Pozo 15:48:40 1 mg VERSED given in lab by Cathy Toscano RN in Left Wrist via Peripheral IV. Ordered by Jovanni Pozo. A STENT, 3.0 15MM FREDA 3.0 15MM was advanced through a AR 1 GUIDE CATHETER FR 6 over a WIRE, AT W MARKER 15:48:59 195CM 195CM. 15:49:04 HR=62 bpm, IEVZ=378/80 mmhg, SpO2=95.0 %, Resp=13 B/min 15:49:21 25 mcg FENTANYL given in lab by Cathy Toscano RN in Left Wrist via Peripheral IV. Ordered by Jovanni Pozo. A STENT, 3.0 15MM FREDA 3.0 15MM was deployed using a 30 LISA INDEFLATOR at 21 atmospheres for 40 seconds in 15:49:55 the SVG-DIAG. 15:50:33 25 mcg FENTANYL given in lab by Cathy Toscano RN in Left Wrist via Peripheral IV. Ordered by Jovanni Pozo. 15:51:10 Re-inflated the stent balloon in the SVG-DIAG to 21 LISA for 30 seconds. 15:52:23 Delivery device removed 15:53:20 50 mcg NIPRIDE given in lab by Jovanni Pozo via Intra-coronary. Ordered by Baudilio Pozo ar. 15:53:51 Wire removed 15:53:52 25 mcg FENTANYL given in lab by Cathy Toscano RN in Left Wrist via Peripheral IV. Ordered by Jovanni Pozo. 15:53:57 Catheter was removed 15:54:50 HR=63 bpm, MBLZ=083/93 mmhg, SpO2=95.0 %, Resp=13 B/min 15:54:56 An injection in the Fem Art (left) was made through the SHEATH, FR6.5 PRELUDE 11CM FR 6.5. 15:56:59 ANGIOSEAL, FR6 VIP FR 6 placement in the Fem Art (left) Site prepped with betadine prior t o angioseal placement. 15:58:42 Case End (Physician broke scrub) 16:00:10 HR=60 bpm, OOTL=925/97 mmhg, SpO2=95.0 %, Resp=14 B/min, Pain=0, Sow=2 16:05:17 HR=60 bpm, OVIJ=573/107 mmhg, SpO2=95.0 %, Resp=11 B/min 16:09:17 CBCF=011/92 mmhg, SpO2=94.0 % 16:11:46 Vitals capture stopped. 16:15:06 180 mg BRILINTA given in lab by Cathy Toscano RN via Oral. Ordered by Jovanni Pozo. 16:17:07 Patient moved to bed. 16:21:06 Patient transported to [facility] End Study - Contrast Media Used In Study Contrast Total Opened (mL) Total Used (mL) Total Wasted (mL) Omnipaque 280 280 0 End Study - Maximum Contrast Load Max Contrast Load (mL) 642.0 End Study - Radiation Exposure Fluoro Time Fluoro Dose (mGy) Cine Dose (uGym2) (minutes) 19.8 6013 [id number] End Study - Sheaths Sheaths Pulled By Sheath Hold Time (min) Jovanni Pozo End Study - Patient Disposition Complications Transferred To Interventional Outcome No Telemetry Bed successful
--- NOTE | 2018-07-12 16:45 | P.PNPL ---
Subjective Interval history: 72 YOWm with CAD,COPD SOB better Underwent cath, had stent placed No CP Physical Exam Vital signs: Vital Signs 07/11/18 17:00 07/11/18 18:00 07/11/18 19:00 Temperature Pulse Rate 77 85 64 Respiratory Rate Blood Pressure Pulse Oximetry 07/11/18 19:01 07/11/18 20:00 07/11/18 21:00 Temperature 97.4 F L Pulse Rate 63 62 60 Respiratory Rate 18 18 Blood Pressure 164/74 H Pulse Oximetry 91 L 92 L 07/11/18 22:00 07/11/18 23:00 07/11/18 23:56 Temperature Pulse Rate 62 68 Respiratory Rate Blood Pressure Pulse Oximetry 94 L 07/12/18 00:00 07/12/18 01:00 07/12/18 02:00 Temperature Pulse Rate 62 50 L 56 L Respiratory Rate 16 Blood Pressure 176/80 H Pulse Oximetry 92 L 07/12/18 03:00 07/12/18 04:00 07/12/18 05:00 Temperature Pulse Rate 50 L 61 53 L Respiratory Rate 18 Blood Pressure 142/69 H Pulse Oximetry 92 L 07/12/18 06:00 07/12/18 07:00 07/12/18 07:41 Temperature Pulse Rate 48 L 52 L 66 Respiratory Rate 18 Blood Pressure Pulse Oximetry 97 07/12/18 08:00 07/12/18 09:00 07/12/18 10:00 Temperature 97.8 F Pulse Rate 53 L 76 71 Respiratory Rate 20 Blood Pressure 169/80 H Pulse Oximetry 92 L 07/12/18 11:00 07/12/18 12:00 07/12/18 13:00 Temperature 97.9 F Pulse Rate 53 L 56 L 50 L Respiratory Rate 18 Blood Pressure 158/79 H Pulse Oximetry 92 L 07/12/18 13:34 Temperature Pulse Rate 51 L Respiratory Rate 16 Blood Pressure Pulse Oximetry Intake & Output 07/11/18 07/12/18 07/12/18 18:59 06:59 18:59 Intake Total 1740 / 1740 490 / 490 350 / 350 Output Total 1350 / 1350 730 / 730 Balance 390 / 390 -240 / -240 350 / 350 Weight 102.6 kg Intake: IV 600 / 600 250 / 250 350 / 350 Heparin/D5W 25,000 U/250 mL 25, 250 / 250 250 / 250 000 unit In 250 ml @ Per Protocol IV.CONT TITRATE PRN Rx #:[id number] Azithromycin Inj 500 MG In NS 250 / 250 250 / 250 Inj 250 ML @ 250 mls/hr IV.SIG Q24H ERNIE Rx#:[id number] Rocephin Inj 1,000 MG In NS Inj 100 / 100 100 / 100 100 ML @ 200 mls/hr IV.SIG Q24H ERNIE Rx#:[id number] Oral 1140 / 1140 240 / 240 Output: Urine 1350 / 1350 730 / 730 Other: Date of Last Bowel Movement 07/11/18 07/11/18 07/11/18 # Bowel Movements 1 GENERAL: WBWN NAD SKIN: Warm and dry. HEAD: Normocephalic. EYES: No scleral icterus. No injection or drainage. NECK: Supple, trachea midline. No JVD or lymphadenopathy. CARDIOVASCULAR: Regular rate and rhythm without murmurs, gallops, or rubs. RESPIRATORY: Breath sounds equal bilaterally. No accessory muscle use. GASTROINTESTINAL: Abdomen soft, non-tender, nondistended. MUSCULOSKELETAL: No cyanosis, or edema. BACK: Nontender without obvious deformity. No CVA tenderness. - Urinary Catheter Management Indwelling Urethral Catheter Cath placed during this visit: yes Urethral indwelling: No Reason for continuing: Acute urinary retention Insertion date: 07/10/18 Insertion time: 04:19 Assessment and Plan - Plan IMPRESSION: 1. Chronic obstructive pulmonary disease exacerbation. 2. Hypoxia. No pulmonary embolism. 3. A lingular/left lower lobe infiltrate. 4. Increased troponin, possible non-ST myocardial infarction. 5. History of coronary artery disease, status post coronary artery bypass grafting. 6. Hypertension PLAN: Aerosol nebs Supplement 02 IV Solumedrol Cont Abx
--- NOTE | 2018-07-12 16:56 | P.DIET ---
Nutritional Evaluation Type of nutrition evaluation: initial Nutrition screening: MDC (diet education) Objective - Diagnosis acute onset respiratory distress, COPD, CHF Assessment Assessment: Pt s/p cardiac cath today, resting on bed. Pt family member present during RD visit for diet education. Per fam member, pt not able to listen today, RD left cardiac diet educational materials by bedside table. RD to revisit 07/14 to provide education and answer any questions that may arise. Recommendations: RD to revisit 07/14 to provide education and answer any questions that may arise
[2018-07-12] MEDS ORDERED: amLODIPine 10 MG Tablet PO ONE (17:00)
[2018-07-12] MEDS ORDERED: amLODIPine 10 MG Tablet PO SCH (17:00)
[2018-07-12] MEDS: amLODIPine 10 MG Tablet PO SCH (17:41)
[2018-07-12] MEDS ORDERED: ALPRAZolam 0.25 MG Tablet PO PRN (18:11)
--- NOTE | 2018-07-12 20:29 | MR ---
cc: Jovanni Pozo MD DATE: 07/12/2018 INDICATIONS: Acute coronary syndrome, non-ST elevation myocardial infarction, class III angina, coronary artery disease, history of 2-vessel coronary artery bypass. PROCEDURE PERFORMED: 1. Retrograde left heart catheterization with left ventriculography and selective coronary angiography. 2. Saphenous venous graft angiography. 3. Left internal mammary artery angiography. 4. Angioplasty and stenting of the saphenous venous graft to the diagonal artery. 5. Moderate sedation. ACCESS SITE: Right femoral artery. EQUIPMENT USED: 5 Togolese pigtail catheter, 5 Togolese JL4 and AR modified coronary catheters, AR1 guide, Marker wire, 2.5 x 10 mm balloon for predilatation, 3.0 x 15 mm Bridger drug-eluting stent at 21 atmospheres to the ostium of the vein graft to the diagonal artery. MEDICATIONS: Versed IV, fentanyl IV, heparin IV, nitroglycerin IC, nitroprusside IC, Kengreal IV drip, Brilinta 180 mg p.o. CONTRAST: Omnipaque 280 mL. COMPLICATIONS: None. ESTIMATED BLOOD LOSS: Less than 10 mL. METHOD OF HEMOSTASIS: Angio-Seal closure. RESULTS: A. HEMODYNAMICS: Heart rate 70 beats per minute. Left ventricular end-diastolic pressure 7 mmHg. Left ventricle 191/7. Aorta 191/58/105. B. LEFT VENTRICULOGRAPHY: Ejection fraction 55%. Wall motion normal. No mitral regurgitation. C. CORONARY ANGIOGRAPHY: Left main coronary has 20% stenosis at the distal portion. Left anterior descending artery is totally occluded in the proximal portion. Mid and distal LAD is patent. First diagonal artery is totally occluded. Left circumflex artery is patent. OM1 has 20% in-stent stenosis in the proximal portion and 30% stenosis distally to the stent in the mid portion. Right coronary artery is a dominant vessel with 60% stenosis in the mid portion and patent stent in the proximal portion. PDA is patent. PLV is patent. There is 70% stenosis of the right ventricular branch. Ramus intermedius has 40% stenosis of the proximal portion and 70% stenosis in the mid portion. Saphenous venous graft to the diagonal artery has 80% stenosis of the ostium. Left internal mammary artery to the left anterior descending artery is patent. The stenosis in the saphenous vein graft to the diagonal artery is 80% at the ostium. Lesion length is 11 mm. Pre-AMEYA flow 3, post-AMEYA flow 3, post stenosis 0. D. POST-INTERVENTION ANGIOGRAPHY: Excellent patency of the stented segments and no evidence of dissection, thrombosis or embolization. DIAGNOSES: 1. Coronary artery disease with severe stenosis of the saphenous venous graft to a diagonal artery and patent left internal mammary artery graft to the left anterior descending artery. 2. Overall preserved left ventricular systolic function. 3. Successful angioplasty and stenting of the saphenous venous graft to the diagonal artery. DISPOSITION: Mr. Willson was started on Brilinta. We will continue baby aspirin. We will continue and titrate aggressive modification of his cardiac risk factors. He will follow up with Dr. Anguiano, his primary aircraft tool maker, in his office after discharge. MD JANIE Amor/karen , 04:21 PM , 04:34 PM BARB
[2018-07-12] MEDS: Famotidine 20 MG Tablet PO SCH (21:38)
[2018-07-13 08:08] LABS: Baso % (Auto) 0.2 % (0.0-2.0); Hematocrit 40.4 % (39.0-51.0); Hemoglobin 14.1 gm/dL (13.0-17.0); Lymph # (Auto) 0.5 th/mm3 (1.0-4.8); Lymph % (Auto) 5.8 % (9.0-44.0); Mean Corpuscular HGB Conc 34.9 % (32.0-36.0); Mean Corpuscular Hemoglobin 33.8 pg (27.0-34.0); Mean Platelet Volume 8.4 fL (7.0-11.0); Mono # (Auto) 0.3 th/mm3 (0.0-0.9); Mono % (Auto) 3.5 % (0.0-8.0); Neut # (Auto) 7.9 th/mm3 (1.8-7.7); Neut % (Auto) 90.5 % (16.0-70.0); Platelet Count 169 th/mm3 (150-450); Red Blood Count 4.17 mil/mm3 (4.50-5.90); Red Cell Distribution Width 16.8 % (11.6-17.2); White Blood Count 8.7 th/mm3 (4.0-11.0)
[2018-07-13] MEDS: Azithromycin Inj 500 MG in Sodium Chlor 0.9% Inj 250 ML IV.SIG SCH (08:33)
[2018-07-13] MEDS: Docusate Sodium 100 MG Capsule PO SCH (08:34)
[2018-07-13] MEDS: Multivitamin/Minerals Therapeutic Tablet PO SCH (08:34)
[2018-07-13] MEDS: predniSONE 10 MG Tablet PO SCH (08:34)
[2018-07-13] MEDS: amLODIPine 10 MG Tablet PO SCH (08:37)
[2018-07-13] MEDS: Carvedilol 12.5 MG Tablet PO SCH (08:37)
[2018-07-13 08:39] LABS: Alanine Aminotransferase 32 U/L (12-78); Albumin 2.9 g/dL (3.4-5.0); Alkaline Phosphatase 95 U/L (45-117); Anion Gap 7 meq/L (5-15); Aspartate Aminotransferase 17 U/L (15-37); Blood Urea Nitrogen 25 mg/dL (7-18); Calcium 8.2 mg/dL (8.5-10.1); Carbon Dioxide 28.4 meq/L (21.0-32.0); Chloride 103 meq/L (98-107); Glomerular Filtration Rate Greater Than 89 mL/min (>89); Glucose,Random 255 mg/dL (74-106); Sodium 138 meq/L (136-145); Total Protein 6.5 g/dL (6.4-8.2)
--- NOTE | 2018-07-13 11:31 | P.PN ---
Subjective Interval history: no complains of chest pain or shortness of breath baseline on home 02 Physical Exam Vital signs: Vital Signs 07/12/18 12:00 07/12/18 13:00 07/12/18 13:34 Temperature 97.9 F Pulse Rate 56 L 50 L 51 L Respiratory Rate 18 16 Blood Pressure 158/79 H Pulse Oximetry 92 L 07/12/18 16:00 07/12/18 17:00 07/12/18 18:00 Temperature 97.9 F Pulse Rate 57 L 47 L 63 Respiratory Rate 18 Blood Pressure 211/85 H Pulse Oximetry 96 07/12/18 18:45 07/12/18 20:00 07/12/18 20:47 Temperature Pulse Rate 63 61 Respiratory Rate 16 Blood Pressure 136/62 Pulse Oximetry 92 L 97 07/12/18 21:00 07/12/18 22:00 07/12/18 23:00 Temperature Pulse Rate 52 L 54 L 52 L Respiratory Rate Blood Pressure Pulse Oximetry 07/13/18 00:00 07/13/18 01:00 07/13/18 02:00 Temperature Pulse Rate 56 L 54 L 60 Respiratory Rate 16 Blood Pressure 151/62 H Pulse Oximetry 93 L 07/13/18 03:00 07/13/18 04:00 07/13/18 05:00 Temperature Pulse Rate 54 L 56 L 58 L Respiratory Rate 16 Blood Pressure Pulse Oximetry 94 L 07/13/18 05:52 07/13/18 07:00 07/13/18 07:59 Temperature Pulse Rate 61 56 L Respiratory Rate Blood Pressure Pulse Oximetry 96 07/13/18 08:00 07/13/18 09:00 07/13/18 10:00 Temperature 97.4 F L Pulse Rate 58 L 55 L 66 Respiratory Rate 18 Blood Pressure 150/77 H Pulse Oximetry 97 Intake & Output 07/12/18 07/13/18 07/13/18 18:59 06:59 18:59 Intake Total 830 / 830 240 / 240 350 / 350 Output Total 1900 / 1900 625 / 625 Balance -1070 / -1070 -385 / -385 350 / 350 Weight 102.9 kg Intake: IV 350 / 350 350 / 350 Azithromycin Inj 500 MG In NS 250 / 250 250 / 250 Inj 250 ML @ 250 mls/hr IV.SIG Q24H [facility] Rx#:[id number] Rocephin Inj 1,000 MG In NS Inj 100 / 100 100 / 100 100 ML @ 200 mls/hr IV.SIG Q24H [facility] Rx#:[id number] Oral 480 / 480 240 / 240 Output: Urine 1900 / 1900 Urine Amount (Catheter) 625 / 625 Indwelling Urethral Catheter 625 / 625 Other: Date of Last Bowel Movement 07/11/18 07/11/18 07/11/18 Narrative: GENERAL: NAD, A&Ox3 HEAD: Normocephalic. NECK: Supple, trachea midline. No lymphadenopathy. EYES: No scleral icterus. No injection or drainage. CARDIOVASCULAR: Regular =rhythm RESPIRATORY: Breath sounds equal bilaterally. No accessory muscle use. GASTROINTESTINAL: Abdomen soft, non-tender, nondistended. MUSCULOSKELETAL: No cyanosis, or edema. richter in place right groin no hemaotoma SKIN: Warm and dry. NEURO: No focal neurological deficits. - Urinary Catheter Management Indwelling Urethral Catheter Cath placed during this visit: yes, but has since been removed by the nurse Urethral indwelling: Yes Reason for continuing: Acute urinary retention Insertion date: 07/10/18 Insertion time: 04:19 Removal date: 07/13/18 Results - Labs CBC & Chem 7: 07/13/18 06:25 07/13/18 06:25 Laboratory Results - last 24 hr 07/13/18 07/13/18 07/13/18 06:25 06:25 06:25 WBC 8.7 RBC 4.17 L Hgb 14.1 Hct 40.4 MCV 97.0 MCH 33.8 MCHC 34.9 RDW 16.8 Plt Count 169 MPV 8.4 Neut % (Auto) 90.5 H Lymph % (Auto) 5.8 L [place] % (Auto) 3.5 Eos % (Auto) 0.0 Baso % (Auto) 0.2 Neut # (Auto) 7.9 H Lymph # (Auto) 0.5 L [place] # (Auto) 0.3 Eos # (Auto) 0.0 Baso # (Auto) 0.0 WBC Differential . Differential Comment Auto diff final APTT 26.6 D Sodium 138 Potassium 4.0 Chloride 103 Carbon Dioxide 28.4 Anion Gap 7 BUN 25 H Creatinine 0.78 Estimated GFR Greater than 89 Random Glucose 255 H D Calcium 8.2 L Total Bilirubin 0.7 AST 17 ALT 32 Alkaline Phosphatase 95 Total Protein 6.5 Albumin 2.9 L Microbiology 07/10/18 08:10 Blood - Peripheral Aerobic Blood Culture - Preliminary No growth in 3 days 07/10/18 08:10 Blood - Peripheral Anaerobic Blood Culture - Preliminary No growth in 3 days 07/10/18 08:15 Blood - Peripheral Aerobic Blood Culture - Preliminary No growth in 3 days 07/10/18 08:15 Blood - Peripheral Anaerobic Blood Culture - Preliminary No growth in 3 days - Procedures 07/12- cardiac cath Assessment and Plan - Plan 72-year-old male admitted secondary to respiratory distress with NSTEMI Heart catheterization planned for today. Patient n.p.o. Resume diet after procedure. NSTEMI S.P cath 07/12 Coronary artery disease Chest pain is resolved Cardiology following Continue Brillinta bid Continue beta-blockers Continue nitritesD. POST-INTERVENTION ANGIOGRAPHY: Excellent patency of the stented segments and no evidence of dissection, thrombosis or embolization. DIAGNOSES: 1. Coronary artery disease with severe stenosis of the saphenous venous graft to a diagonal artery and patent left mammary artery graft to the left anterior descending artery. 2. Overall, preserved left ventricular systolic function. 3. Successful angioplasty and stenting of the saphenous venous graft to the diagonal artery. DISPOSITION: Mr. Willson was started on Brilinta. We will continue baby aspirin. We will continue and titrate aggressive modification of his cardiac risk factors. He will follow up with Dr. Anguiano, his primary principal data architect, in his office after discharge. COPD exacerbation Acute on chronic respiratory failure Community-acquired pneumonia Left lower lobe pneumonia Improved, no persistence of COPD exacerbation Continue oxygen supplementation as needed Decrease prednisone to 20 mg bid Pulmonary treatments as needed Continue Rocephin Continue azithromycin DC on po Ceftin 500 mg po bid x 3-4 days ON discharge - continue home Prednisone 20 mg aily OP ff up with Dr. Webb- known to him Hypertension Continue baseline treatment Follow blood pressures Adjust treatments as needed Continue Coreg Hyperlipidemia Continue present treatment Follow as an outpatient Leukocytosis May be related to steroids Follow blood sugars Insulin sliding scale Diabetic diet DVT prophylaxis Heparin Progress Note: Quality VTE Deep Vein Thrombosis/Pulmonary Embolism Present on Admission: No
--- NOTE | 2018-07-13 17:02 | P.PNCA ---
Subjective Interval history: Patient denies any CP, pressure, palpitations, dizziness, edema or SOB. Patient states he is feeling much better at this time. Medications and Allergies Allergies Allergy/AdvReac Type Severity Reaction Status Date / Time CATALINO Inhibitors Allergy Anaphylaxis Verified 07/10/18 02:58 Home Medications Medication Instructions Recorded Confirmed Type albuterol sulfate [ProAir HFA] 2 puff INHALATION Q4-6H PRN 07/10/18 07/10/18 History aspirin 81 mg PO DAILY 07/10/18 07/10/18 History bumetanide 1 mg PO DAILY 07/10/18 07/10/18 History carvedilol [Coreg] 25 mg PO BID 07/10/18 07/10/18 History clopidogrel [Plavix] 75 mg PO DAILY 07/10/18 07/10/18 History rosuvastatin [Crestor] 10 mg PO DAILY 07/10/18 07/10/18 History Active Medications: Active Medications Acetaminophen (Tylenol) 650 mg PO Q4H PRN PRN Reason: Temp > 100.4 Albuterol (Ventolin Hfa Inh) 2 puff INH Q4H PRN PRN Reason: Shortness Of Breath Alprazolam (Xanax) 0.25 mg PO Q6HR PRN PRN Reason: ANXIETY Last Admin: 07/12/18 19:18 Dose: 0.25 mg Amlodipine Besylate (Norvasc) 10 mg PO DAILY [facility] Last Admin: 07/13/18 08:37 Dose: 10 mg Artificial Tears (Tears Naturale Opth Drops) 1 drop EACH EYE Q4H PRN PRN Reason: DRY EYE(S) Last Admin: 07/13/18 11:18 Dose: 1 drop Aspirin (Aspirin Chew) 81 mg PO DAILY [facility] Last Admin: 07/13/18 08:34 Dose: 81 mg Atorvastatin Calcium (Lipitor) 80 mg PO [facility] Bumetanide (Bumex) 1 mg PO DAILY [facility] Last Admin: 07/13/18 08:35 Dose: 1 mg Carvedilol (Coreg) 25 mg PO BID [facility] Last Admin: 07/13/18 08:37 Dose: Not Given Clonidine HCl (Catapres) 0.1 mg PO Q6H PRN PRN Reason: SYS BP GREATER THAN 160 MMHG Dextrose (D50w Vial) 50 ml IV.PUSH UNSCH PRN PRN Reason: PER HYPOGLYCEMIA PROTOCOL Diphenhydramine HCl (Benadryl) 50 mg PO HS PRN PRN Reason: SEE LABEL COMMENTS Docusate Sodium (Colace) 100 mg PO BID [facility] Last Admin: 07/13/18 08:34 Dose: 100 mg Famotidine (Pepcid) 20 mg PO HS [facility] Last Admin: 07/12/18 21:38 Dose: 20 mg Glucagon (Glucagon Inj) 1 mg OTHER PRN PRN PRN Reason: For hypoglycemia Ceftriaxone Sodium 1,000 mg/ (Sodium Chloride) 100 mls @ 200 mls/hr IV.SIG Q24H [facility] Last Infusion: 07/13/18 09:55 Dose: Infused Azithromycin 500 mg/ Sodium (Chloride) 250 mls @ 250 mls/hr IV.SIG Q24H [facility] Last Infusion: 07/13/18 09:45 Dose: Infused Lactobacillus Acidophilus (Lactinex Pkt) 1 gm PO TID [facility] Last Admin: 07/13/18 14:27 Dose: 1 gm Multivitamins/Minerals (Theragran-M) 1 tab PO DAILY [facility] Last Admin: 07/13/18 08:34 Dose: 1 tab Ondansetron HCl (Zofran Inj) 4 mg IV.PUSH Q6H PRN PRN Reason: NAUSEA OR VOMITING Prednisone (Deltasone) 20 mg PO BID [facility] Sodium Chloride (Ns Flush) 2 ml IV.FLUSH PRN PRN PRN Reason: FLUSH AFTER USING IV ACCESS Sodium Chloride (Ns Flush) 2 ml IV.FLUSH BID [facility] Last Admin: 07/13/18 08:37 Dose: 2 ml Tamsulosin HCl (Flomax) 0.4 mg PO DAILY [facility] Last Admin: 07/13/18 08:34 Dose: 0.4 mg Ticagrelor (Brilinta) 90 mg PO BID [facility] Last Admin: 07/13/18 08:34 Dose: 90 mg Physical Exam Vital signs: Vital Signs 07/12/18 17:00 07/12/18 18:00 07/12/18 18:45 Temperature Pulse Rate 47 L 63 63 Respiratory Rate Blood Pressure Pulse Oximetry 07/12/18 20:00 07/12/18 20:47 07/12/18 21:00 Temperature Pulse Rate 61 52 L Respiratory Rate 16 Blood Pressure 136/62 Pulse Oximetry 92 L 97 07/12/18 22:00 07/12/18 23:00 07/13/18 00:00 Temperature Pulse Rate 54 L 52 L 56 L Respiratory Rate 16 Blood Pressure 151/62 H Pulse Oximetry 93 L 07/13/18 01:00 07/13/18 02:00 07/13/18 03:00 Temperature Pulse Rate 54 L 60 54 L Respiratory Rate Blood Pressure Pulse Oximetry 07/13/18 04:00 07/13/18 05:00 07/13/18 05:52 Temperature Pulse Rate 56 L 58 L 61 Respiratory Rate 16 Blood Pressure Pulse Oximetry 94 L 07/13/18 07:00 07/13/18 07:59 07/13/18 08:00 Temperature 97.4 F L Pulse Rate 56 L 58 L Respiratory Rate 18 Blood Pressure 150/77 H Pulse Oximetry 96 97 07/13/18 09:00 07/13/18 10:00 07/13/18 11:00 Temperature Pulse Rate 55 L 66 58 L Respiratory Rate Blood Pressure Pulse Oximetry 07/13/18 12:00 07/13/18 13:00 07/13/18 14:00 Temperature 97.8 F Pulse Rate 66 62 61 Respiratory Rate 20 Blood Pressure 129/72 Pulse Oximetry 95 07/13/18 15:00 07/13/18 16:00 Temperature 98.0 F Pulse Rate 66 59 L Respiratory Rate 20 Blood Pressure 140/62 Pulse Oximetry 93 L Intake & Output 07/12/18 07/13/18 07/13/18 18:59 06:59 18:59 Intake Total 830 / 830 240 / 240 400 / 400 Output Total 1900 / 1900 625 / 625 Balance -1070 / -1070 -385 / -385 400 / 400 Weight 102.9 kg Intake: IV 350 / 350 400 / 400 Heparin/D5W 25,000 U/250 mL 25, 50 / 50 000 unit In 250 ml @ Per Protocol IV.CONT TITRATE PRN Rx #:[id number] Azithromycin Inj 500 MG In NS 250 / 250 250 / 250 Inj 250 ML @ 250 mls/hr IV.SIG Q24H [facility] Rx#:[id number] Rocephin Inj 1,000 MG In NS Inj 100 / 100 100 / 100 100 ML @ 200 mls/hr IV.SIG Q24H [facility] Rx#:[id number] Oral 480 / 480 240 / 240 Output: Urine 1900 / 1900 Urine Amount (Catheter) 625 / 625 Indwelling Urethral Catheter 625 / 625 Other: Date of Last Bowel Movement 07/11/18 07/11/18 07/12/18 - Constitutional no acute distress - Routine HEENT Exam Head: Present: normocephalic Eye: Present: PERRL ENT: Present: mucous membranes moist - Routine Neck Exam Present: full ROM - Routine Respiratory Exam Present: CTA bilaterally - Routine Cardiovascular Exam Present: S1, S2. Absent: murmur, gallop, rubs - Routine Abdominal Exam Present: normoactive bowel sounds - Routine Extremities Exam Present: full ROM, pulses intact, normal capillary refill. Absent: cyanosis, clubbing, edema - Routine Skin Exam Present: intact - Routine Neurological Exam Present: oriented X3 - Detailed Neurological Exam: Coma Scale Eye Opening: Spontaneous Verbal Response: Oriented Motor Response: Obey commands Reji Coma Scale Total: 15 - Routine Psychiatric Exam Present: normal affect - Urinary Catheter Management Indwelling Urethral Catheter Cath placed during this visit: yes, but has since been removed by the nurse Urethral indwelling: Yes Reason for continuing: Decision to DC catheter Insertion date: 07/10/18 Insertion time: 04:19 Removal date: 07/13/18 Removal time: 11:43 Results 07/13/18 06:25 07/13/18 06:25 Cardiac Enzymes 07/12/18 07/13/18 Range/Units 05:04 06:25 AST 15 17 (15-37) U/L Coagulation 07/12/18 07/13/18 Range/Units 05:04 06:25 APTT 49.8 H D 26.6 D (23.4-31.7) sec CBC 07/12/18 07/13/18 Range/Units 05:04 06:25 WBC 11.4 H 8.7 (4.0-11.0) th/mm3 RBC 4.07 L 4.17 L (4.50-5.90) mil/mm3 Hgb 13.6 14.1 (13.0-17.0) gm/dL Hct 40.4 40.4 (39.0-51.0) % Plt Count 154 169 (150-450) th/mm3 Neut # (Auto) 10.3 H 7.9 H (1.8-7.7) th/mm3 Lymph # (Auto) 0.5 L 0.5 L (1.0-4.8) th/mm3 [place] # (Auto) 0.6 0.3 (0.0-0.9) th/mm3 Eos # (Auto) 0.0 0.0 (0.0-0.4) th/mm3 Baso # (Auto) 0.0 0.0 (0.0-0.2) th/mm3 Comprehensive Metabolic Panel 07/12/18 07/13/18 Range/Units 05:04 06:25 Sodium 140 138 (136-145) meq/L Potassium 4.4 4.0 (3.5-5.1) meq/L Chloride 104 103 (98-107) meq/L Carbon Dioxide 27.6 28.4 (21.0-32.0) meq/L BUN 27 H 25 H (7-18) mg/dL Creatinine 0.84 0.78 (0.60-1.30) mg/dL Calcium 8.1 L 8.2 L (8.5-10.1) mg/dL AST 15 17 (15-37) U/L ALT 29 32 (12-78) U/L Alkaline Phosphatase 129 H 95 (45-117) U/L Total Protein 6.9 6.5 (6.4-8.2) g/dL Albumin 2.9 L 2.9 L (3.4-5.0) g/dL Intake and Output 07/13/18 07/13/18 07/13/18 06:59 14:59 22:59 Intake Total 240 / 240 400 / 400 Output Total 625 / 625 Balance -385 / -385 400 / 400 Intake: IV 400 / 400 Heparin/D5W 25,000 U/250 mL 25, 50 / 50 000 unit In 250 ml @ Per Protocol IV.CONT TITRATE PRN Rx #:[id number] Azithromycin Inj 500 MG In NS 250 / 250 Inj 250 ML @ 250 mls/hr IV.SIG Q24H [facility] Rx#:[id number] Rocephin Inj 1,000 MG In NS Inj 100 / 100 100 ML @ 200 mls/hr IV.SIG Q24H [facility] Rx#:[id number] Oral 240 / 240 Output: Urine Amount (Catheter) 625 / 625 Indwelling Urethral Catheter 625 / 625 Other: Date of Last Bowel Movement 07/11/18 07/12/18 07/12/18 Weight 102.9 kg Assessment and Plan - Assessment (1) Elevated troponin Code(s): R74.8 - Abnormal levels of other serum enzymes Status: Acute (2) Coronary artery disease Code(s): I25.10 - Atherosclerotic heart disease of [place] coronary artery without angina pectoris Status: Acute (3) Severe chronic obstructive pulmonary disease Code(s): J44.9 - Chronic obstructive pulmonary disease, unspecified Status: Acute (4) Hypercholesteremia Code(s): E78.00 - Pure hypercholesterolemia, unspecified Status: Acute - Plan Patient had cardiac catheterization yesterday, angioplasty with stenting to the saphenous venous graft to a diagonal artery was performed. No signs of bleeding or hematoma to the groin is noted. Continue therapy with Brilinta, baby ASA,statin and beta federica. Patient cleared to be discharged from a cardiology standpoint. We will continue to follow the patient as needed during his hospitalization. The patient was seen and evaluated by Dr. Pozo who participated in care, management and decision making. - Attending Attestation Patient seen and examined. I reviewed and agree with the evaluation and plan as presented. Continue current program post PCI. He remains stable from cardiac standpoint. F/u with Dr. Anguiano as outpatient.
--- NOTE | 2018-07-13 18:35 | P.PNPL ---
Subjective Interval history: 72 YOWm with CAD,COPD SOB better Underwent cath, had stent placed No CP Anxious to go home Ambulates Physical Exam Vital signs: Vital Signs 07/12/18 18:45 07/12/18 20:00 07/12/18 20:47 Temperature Pulse Rate 63 61 Respiratory Rate 16 Blood Pressure 136/62 Pulse Oximetry 92 L 97 07/12/18 21:00 07/12/18 22:00 07/12/18 23:00 Temperature Pulse Rate 52 L 54 L 52 L Respiratory Rate Blood Pressure Pulse Oximetry 07/13/18 00:00 07/13/18 01:00 07/13/18 02:00 Temperature Pulse Rate 56 L 54 L 60 Respiratory Rate 16 Blood Pressure 151/62 H Pulse Oximetry 93 L 07/13/18 03:00 07/13/18 04:00 07/13/18 05:00 Temperature Pulse Rate 54 L 56 L 58 L Respiratory Rate 16 Blood Pressure Pulse Oximetry 94 L 07/13/18 05:52 07/13/18 07:00 07/13/18 07:59 Temperature Pulse Rate 61 56 L Respiratory Rate Blood Pressure Pulse Oximetry 96 07/13/18 08:00 07/13/18 09:00 07/13/18 10:00 Temperature 97.4 F L Pulse Rate 58 L 55 L 66 Respiratory Rate 18 Blood Pressure 150/77 H Pulse Oximetry 97 07/13/18 11:00 07/13/18 12:00 07/13/18 13:00 Temperature 97.8 F Pulse Rate 58 L 66 62 Respiratory Rate 20 Blood Pressure 129/72 Pulse Oximetry 95 07/13/18 14:00 07/13/18 15:00 07/13/18 16:00 Temperature 98.0 F Pulse Rate 61 66 59 L Respiratory Rate 20 Blood Pressure 140/62 Pulse Oximetry 93 L 07/13/18 17:00 Temperature Pulse Rate 57 L Respiratory Rate Blood Pressure Pulse Oximetry Intake & Output 07/12/18 07/13/18 07/13/18 18:59 06:59 18:59 Intake Total 830 / 830 240 / 240 400 / 400 Output Total 1900 / 1900 625 / 625 Balance -1070 / -1070 -385 / -385 400 / 400 Weight 102.9 kg Intake: IV 350 / 350 400 / 400 Heparin/D5W 25,000 U/250 mL 25, 50 / 50 000 unit In 250 ml @ Per Protocol IV.CONT TITRATE PRN Rx #:[id number] Azithromycin Inj 500 MG In NS 250 / 250 250 / 250 Inj 250 ML @ 250 mls/hr IV.SIG Q24H [facility] Rx#:[id number] Rocephin Inj 1,000 MG In NS Inj 100 / 100 100 / 100 100 ML @ 200 mls/hr IV.SIG Q24H [facility] Rx#:[id number] Oral 480 / 480 240 / 240 Output: Urine 1900 / 1900 Urine Amount (Catheter) 625 / 625 Indwelling Urethral Catheter 625 / 625 Other: Date of Last Bowel Movement 07/11/18 07/11/18 07/12/18 GENERAL: WBWN NAD SKIN: Warm and dry. HEAD: Normocephalic. EYES: No scleral icterus. No injection or drainage. NECK: Supple, trachea midline. No JVD or lymphadenopathy. CARDIOVASCULAR: Regular rate and rhythm without murmurs, gallops, or rubs. RESPIRATORY: Breath sounds equal bilaterally. No accessory muscle use. GASTROINTESTINAL: Abdomen soft, non-tender, nondistended. MUSCULOSKELETAL: No cyanosis, or edema. BACK: Nontender without obvious deformity. No CVA tenderness. - Urinary Catheter Management Indwelling Urethral Catheter Cath placed during this visit: yes, but has since been removed by the nurse Urethral indwelling: Yes Reason for continuing: Decision to DC catheter Insertion date: 07/10/18 Insertion time: 04:19 Removal date: 07/13/18 Removal time: 11:43 Assessment and Plan - Plan IMPRESSION: 1. Chronic obstructive pulmonary disease exacerbation. 2. Hypoxia. No pulmonary embolism. 3. A lingular/left lower lobe infiltrate. 4. Increased troponin, possible non-ST myocardial infarction. 5. History of coronary artery disease, status post coronary artery bypass grafting. 6. Hypertension PLAN: Aerosol nebs Supplement 02 prednisone 20 mg daily Cont Abx Stable from Pulm standpoint DC plans for home Will FU in office.
[2018-07-13] MEDS ORDERED: predniSONE 10 MG Tablet PO SCH (21:00)
[2018-07-14] MEDS ORDERED: levoFLOXacin 500 MG Tablet PO SCH (09:00)
== END 2018-07-13 20:37 | disposition home or self-care (01) ==
LOC: PHED 02:53 → PHEDA 08:25 → PH3 09:05 → HCIS 21:48
PROVIDERS: ADMIT Internal Medicine; ATTEND Internal Medicine